=== PATIENT | female | born 1950 | race Caucasian/White ===

== ENCOUNTER 2018-08-05 10:17 | Inpatient (IN) | payer BC, MEDICARE ==
[~2018-08-05] VITALS: Ht 160 cm; Wt 83.5 kg
[~2018-08-05 10:17] MED LIST: ATENOLOL; ATENOLOL25 MG PO; BYETTA; GLIMEPIRIDE; HUMALOG SQ; LEVEMIR100 UNIT/1 SQ; METFORMIN; METFORMIN HCL1000 MG PO; PRAVASTATIN; PRAVASTATIN SOD40 MG PO
[2018-08-05] MEDS ORDERED: SODIUM CHLORIDE 0.9% 1000ML 1,000 ML IV STA (10:44)
[2018-08-05 10:45] LABS: BASOPHILS % 0.6 % (0.0-1.0); EOSINOPHILS # (AUTO) 0.2 (0.0-0.4); EOSINOPHILS % 2.4 % (0.0-6.0); HEMATOCRIT 42.9 % (34.2-44.1); HEMOGLOBIN 13.6 g/dL (12.0-16.0); LYMPHOCYTES # (AUTO) 2.1 (1.0-3.2); LYMPHOCYTES % 30.6 % (18.0-39.1); MEAN CORPUSCULAR HEMOGLOBIN 25.9 pg (28-32); MEAN CORPUSCULAR HGB CONC 31.7 g/dL (31-35); MEAN CORPUSCULAR VOLUME 81.7 fL (81-99); MONOCYTES # (AUTO) 0.5 (0.2-0.8); MONOCYTES % 6.8 % (4.4-11.3); NEUTROPHILS % 59.3 % (38.7-80.0); PLATELET COUNT 283 x10e3/uL (140-360); RED BLOOD COUNT 5.25 x10e6/uL (3.6-5.1); RED CELL DISTRIBUTION WIDTH 13.4 % (11.7-14.4)
[2018-08-05 10:56] LABS: INR 0.93; PROTHROMBIN TIME 13.3 seconds (11.9-14.5)
[2018-08-05 10:57] LABS: CLARITY,URINE CLOUDY (CLEAR); COLOR,URINE YELLOW (YELLOW); LEUKOCYTE ESTERASE ,URINE 1+ (NEGATIVE); NITRITE,URINE NEGATIVE (NEGATIVE); PROTEIN,URINE DIPSTICK TRACE (NEGATIVE)
[2018-08-05 10:58] LABS: BILIRUBIN,URINE NEGATIVE (NEGATIVE); KETONES,URINE TRACE (NEGATIVE); URINE UROBILINOGEN 0.2 mg/dL (0.2 - 1)
[2018-08-05 11:07] LABS: ALBUMIN 3.6 g/dL (3.5-5.0); ALBUMIN/GLOBULIN RATIO 0.9 (0.8-2.0); ANION GAP 18.8 mmol/L (8-16); CALCIUM 9.8 mg/dL (8.4-10.2); CREATININE, SERUM 0.99 mg/dL (0.57-1.11); MAGNESIUM 1.4 MG/DL (1.3-2.1); POTASSIUM 3.8 mmol/L (3.5-5.1); WBC,URINE (MAN) >50 /HPF (0-5)
[2018-08-05 11:08] LABS: BACTERIA,URINE MANY /HPF; RBC,URINE >50 /HPF (0-5)
[2018-08-05 11:09] LABS: EPITHELIAL CELLS,URINE FEW /LPF
[2018-08-05] MEDS ORDERED: INSULIN REGULAR, HUMAN 100 UNIT/1 ML 3ML VIAL SQ ONE (11:15)
[2018-08-05 11:29] LABS: CREATINE KINASE MB 0.5 ng/mL (0-5.0); THYROID STIMULATING HORMONE 1.078 uIU/mL (0.350-4.940)
--- NOTE | 2018-08-05 11:52 | Diagnostic Imaging Report ---
EXAMINATION: CHEST SINGLE (PORTABLE) INDICATION: Numbness. COMPARISON: None FINDINGS: AP view TUBES and LINES: None. LUNGS: Lungs are well inflated. There are bibasilar atelectasis. There is mild prominence of the central pulmonary vasculature, consistent with pulmonary venous congestion. PLEURA: No pleural effusion or pneumothorax. HEART AND MEDIASTINUM: The cardiomediastinal silhouette is unremarkable. BONES AND SOFT TISSUES: No acute osseous lesion. Soft tissues are unremarkable. UPPER ABDOMEN: No free air under the diaphragm. IMPRESSION: Mild nonspecific central pulmonary venous congestion. Signed by: Dr. Dane Brush M.D. on 08/05/2018 11:48 AM
--- NOTE | 2018-08-05 12:01 | Diagnostic Imaging Report ---
History:High blood sugar, numbness Comparison studies:None Technique: Axial images were obtained from the skull base to the vertex. Coronal and sagittal images reconstructed from the axial data. Intravenous contrast: None Dose modulation, iterative reconstruction, and/or weight based adjustment of the mA/kV was utilized to reduce the radiation dose to as low as reasonably achievable. Findings: Scalp/skull: No abnormalities. Extra-axial spaces: No masses. No fluid collections. Brain sulci: Mildly prominent. Ventricles: Mild compensatory dilatation. No hydrocephalus. Parenchyma: Few small hypodensities in the supratentorial white matter are small vessel ischemic changes small chronic lacunar infarct in the left thalamocapsular region. No masses, hemorrhage, acute or chronic cortical vascular insults. Sellar/suprasellar region: No abnormalities. Craniocervical junction: Patent foramen magnum. No Chiari one malformation. Incidental findings: Atherosclerotic calcifications in the carotid siphons and vertebral arteries . Impression: No acute abnormalities. Chronic findings: 1. Mild generalized volume loss. 2. Mild supratentorial white matter small vessel ischemic changes. 3. Chronic left thalamocapsular lacunar infarct. Signed by: DR Herson Haines M.D. on 08/05/2018 11:57 AM
[2018-08-05] MEDS ORDERED: DEXTROSE 50% SYRINGE 50 ML IV PRN (12:15)
[2018-08-05] MEDS: SODIUM CHLORIDE 0.9% 1000ML 1,000 ML IV SCH ×2 (12:57→22:14)
[2018-08-05] MEDS: CEFTRIAXONE SOD 1 GM VIAL IV SCH (12:58)
[2018-08-05] MEDS: INSULIN REGULAR, HUMAN 100 UNIT/1 ML 3ML VIAL SQ SCH ×2 (17:53→22:11)
[2018-08-05 18:47] LABS: CREATINE KINASE 34 IU/L (29-168)
[2018-08-05 23:00] VITALS: BP 139/69
[2018-08-06] VITALS (7 sets, daily range): BP systolic 116–139; BP diastolic 59–79
[2018-08-06 02:54] LABS: CREATINE KINASE 32 IU/L (29-168)
[2018-08-06] MEDS: SODIUM CHLORIDE 0.9% 1000ML 1,000 ML IV SCH ×2 (07:43→18:10)
[2018-08-06] MEDS: INSULIN REGULAR, HUMAN 100 UNIT/1 ML 3ML VIAL SQ SCH ×4 (08:03→20:45)
[2018-08-06] MEDS: CEFTRIAXONE SOD 1 GM VIAL IV SCH (11:45)
--- NOTE | 2018-08-06 11:56 | History and Physical ---
PRIMARY CARE PHYSICIAN: None CHIEF COMPLAINT: Right-sided numbness. HISTORY OF PRESENT ILLNESS: This is a 67-year-old woman with a history of hypertension, hyperlipidemia, now developing right arm and leg numbness upon awakening on Monday morning. Did not have any weakness. Denies any speech or memory problems. Therefore, she came to the hospital for further evaluation and management. Here she was found to have a urinary tract infection. CT of the head is negative. MRI is pending. PAST MEDICAL HISTORY: Hypertension, hyperlipidemia. PAST SURGICAL HISTORY: Tubal ligation, tonsillectomy, gastric banding, status post removal. ALLERGIES: PER ELECTRONIC MEDICAL RECORD. FAMILY HISTORY/SOCIAL HISTORY: Patient is . She has 1 children. No alcohol, illicits or cigarettes. MEDICATIONS: Per electronic medical records. REVIEW OF SYSTEMS: Denies any dizziness, chest pain, shortness of breath, fever, chills, sweats, nausea, vomiting, diarrhea, headache, back pain, dizziness, arm weakness. PHYSICAL EXAMINATION VITAL SIGNS: Have been reviewed. GENERAL: A tired-appearing woman resting in bed. HEENT: Anicteric. CARDIOVASCULAR: Normal S1 and S2. LUNGS: Moderate breath sounds. ABDOMEN: Soft, nontender and nondistended. EXTREMITIES: No edema or calf tenderness. NEUROLOGICAL: Alert and oriented times 3. She moves all extremities with 5/5 motor strength in all extremities. She has no visual field deficits. LABS: Reviewed. MEDICATIONS: Reviewed. ASSESSMENT: A 67-year-old woman with: 1. Urinary tract infection. 2. Transient ischemic attack versus acute stroke. 3. Uncontrolled diabetes mellitus. 4. Hyperlipidemia. 5. Obesity: Body mass index is 32.6. PLAN 1. Will obtain MRI of the brain. 2. Will utilize aspirin and statin and beta dread. Will obtain a lipid panel. 3. Will use ceftriaxone for treatment of urinary tract infection and follow up cultures. 4. Will use Lovenox and Pepcid for prophylaxis. 5. Disposition. Follow up imaging. Job#: [id number] MARK
--- NOTE | 2018-08-06 14:16 | Diagnostic Imaging Report ---
Exams: Brain MRI, cervical MRA and intracranial MRA without IV contrast History: Right-sided paresthesia, hyperglycemia, Comparison studies: Head CT 08/05/2020 Technique: Brain: Sagittal axial T2 FLAIR, axial DWI, axial and coronal T2 flair, axial T2*GRE and axial T1 FLAIR. Cervical MRA: Axial 2-D [id number] with 3-D MIP reformats. Intracranial MRA: Axial 3-D [id number] with coronal, sagittal and 3-D MIP reformats. Intravenous contrast: None Findings: Brain: Scalp: No abnormal signal. No masses. Bone marrow: Normal in signal intensity. Brain sulci: Mildly prominent. Ventricles: Mild compensatory dilatation. No hydrocephalus. Parenchyma: Acute nonhemorrhagic foci of acute ischemia within the left paramedian thalamus and left posterior lateral thalamus (regional to the paramedian, lateral posterior choroidal and inferolateral thalamic vascular territories). A few scattered foci of T2 FLAIR hyperintensity in the supratentorial white matter are nonspecific but most compatible with chronic microvascular ischemic changes Suprasellar region: No abnormalities. Craniocervical junction: No abnormalities. The foramen magnum is patent. No Chiari malformations. Vessels: Normal flow-voids in the arteries and sinuses. Incidental findings: Bilateral intraocular lens replacements for previous cataract surgery. Cervical MRA: If present, stenosis is calculated utilizing the NASCET method which calculates the degree of stenosis with reference to the normal lumen of the carotid artery distal to the stenosis. Exam is somewhat limited by artifacts related to patient motion. Common carotid arteries: Patent, no gross flow abnormalities. Left common carotid artery arises from the right brachycephalic trunk. Carotid bulbs: Patent, no hemodynamically significant stenosis bilaterally (0% stenosis by NASCET criteria). Internal carotid arteries: Patent, no stenosis. Tortuous distal left cervical ICA segment. Vertebral arteries: Cannot adequate evaluate the origins due to motion/pulsation artifacts. Otherwise patent, no flow abnormalities. Intracranial MRA: Internal carotid arteries: Patent, no flow abnormalities. Calcified atherosclerosis in the cavernous and paraophthalmic ICA segments on the previous head CT do not result in stenosis. Middle cerebral arteries: Patent bilateral M1 and proximal M2 segments. Anterior cerebral arteries: Patent bilateral A1 and proximal A2 segments. Vertebral arteries: Patent, no flow abnormalities on the right. Patent on the left with approximately 50-60% stenosis due to atherosclerosis in the proximal intradural V4 segment, proximal to the PICA origin. Basilar artery: Patent, no flow abnormalities. Posterior cerebral arteries: Patent, no flow abnormalities in the proximal segments bilaterally Anatomical variants: Acom: Patent. Pcom: Patent on the right. Not well visualized on the left, possibly hypoplastic. Vertebral arteries:Codominant. IMPRESSION: Brain MRI: 1. Acute left thalamic nonhemorrhagic ischemic insult. 2. Mild chronic microvascular ischemic changes. 3. Mild generalized line loss. Cervical MRA: 1. Cannot adequately evaluate the vertebral artery origins due to artifacts. 2. Otherwise patent, no flow limiting stenosis in the bilateral carotid vertebral arteries. 3. No (0%) stenosis at the carotid bulbs by NASCET criteria. Intracranial MRA: 1. Nonstenotic atherosclerosis in the carotid siphons. 2. Approximately 50-60% stenosis in the proximal left intradural vertebral artery. 3. No other intracranial MRA abnormalities. Signed by: Dr. Ronaldo Martinez M.D. on 08/06/2018 2:13 PM
[2018-08-06] MEDS ORDERED: ASPIRIN 81 MG CHEW TAB PO SCH (15:00)
[2018-08-06] MEDS ORDERED: CLOPIDOGREL BISULFATE 75 MG TAB PO SCH (15:00)
[2018-08-06] MEDS ORDERED: ENOXAPARIN SOD INJ 40 MG/0.4 ML SYR SC SCH (17:00)
[2018-08-06] MEDS ORDERED: ATENOLOL 50 MG TAB PO SCH (21:00)
[2018-08-06] MEDS ORDERED: INSULIN DETEMIR 100 UNIT/ML PEN SQ SCH (21:00)
[2018-08-06] MEDS ORDERED: PRAVASTATIN 20 MG TAB PO SCH (21:00)
[2018-08-07] VITALS: BP 120/67
[2018-08-07 04:00] VITALS: BP 118/62
[2018-08-07] MEDS ORDERED: PLAVIX75 MG PO (06:57)
[2018-08-07] MEDS ORDERED: ASPIRIN CHEW81 MG PO (06:57)
[2018-08-07] MEDS ORDERED: LIPITOR20 MG PO (06:57)
[2018-08-07] MEDS ORDERED: PEPCID20 MG PO (07:00)
[2018-08-07 07:29] LABS: ANION GAP 12.1 mmol/L (8-16); BLOOD UREA NITROGEN 9 mg/dL (7-26); BUN/CREATININE RATIO 13 (6-25); CALCIUM 9.3 mg/dL (8.4-10.2); CARBON DIOXIDE 24 mmol/L (22-29); CHLORIDE 110 mmol/L (98-107); CREATININE, SERUM 0.71 mg/dL (0.57-1.11); EST GLOMERULAR FILTRATION RATE > 60 ML/MIN (60-); GLUCOSE 99 mg/dL (74-118); POTASSIUM 4.1 mmol/L (3.5-5.1); SODIUM 142 mmol/L (136-145)
[2018-08-07] MEDS: INSULIN REGULAR, HUMAN 100 UNIT/1 ML 3ML VIAL SQ SCH (07:30)
[2018-08-07 07:47] VITALS: BP 118/66
[2018-08-07 08:50] VITALS: BP 118/66
--- NOTE | 2018-08-07 19:23 | Cardiology Report ---
DATE OF STUDY: August 06, 2018 ECHOCARDIOGRAM M-MODE: Normal chamber sizes. Left ventricular hypertrophy. Normal contractility. Normal mitral aortic valves. No pericardial effusion. SECTOR SCAN: Normal chamber sizes. Left ventricular hypertrophy. Normal contractility. Normal mitral, aortic and tricuspid valves. No pericardial effusion. CARDIAC DOPPLER STUDY WITH COLOR: Trace tricuspid regurgitation. CONCLUSIONS: 1. Concentric left ventricular hypertrophy with ejection fraction of approximately 60%. 2. Trace tricuspid regurgitation. Job#: [id number] cc:LAURYN CEDEÑO MD
--- NOTE | 2018-08-08 01:23 | Discharge Summary ---
PRINCIPAL DIAGNOSES 1. Acute left thalamic nonhemorrhagic ischemic stroke. 2. Urinary tract infection. 3. 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 4. Obesity: Body mass index 32.6. 5. Hyperlipidemia. 6. Uncontrolled diabetes mellitus with hemoglobin A1c of 16.2, low-density lipoprotein of 162, and triglycerides of 149. SECONDARY DIAGNOSIS: Hypertension. CHIEF COMPLAINT AND HISTORY OF PRESENT ILLNESS: Refer to [facility] HOSPITAL COURSE: Patient was found to have acute ischemic stroke. Also had a stenosis in the vertebral artery. Patient was started on aspirin, statin, and Plavix. Blood pressure control provided, also treated with ceftriaxone for urinary tract infection. Patient received physical therapy, did well. Ultrasound of the carotid was not significant. Therefore, patient was transitioned home with plan to follow up. DISCHARGE MEDICATIONS: Per electronic medical record. FOLLOWUP 1. With primary care doctor in 1 week. 2. Follow up with me in 1 week. CONDITION ON DISCHARGE: Stable and improving. DISCHARGE LOCATION: Home. LAURYN CEDEÑO MD Job#: [id number]
== END 2018-08-07 09:20 | disposition home or self-care (01) | DRG 65 ==
LOC: ER 10:17 → ERHOLD 12:10 → MED/SURG 22:09
PROVIDERS: ADMIT Internal Medicine; ATTEND Internal Medicine
DX: I63.9 Cerebral infarction, unspecified (principal); N39.0 Urinary tract infection, site not specified; I65.02 Occlusion and stenosis of left vertebral artery; I10 Essential (primary) hypertension; E66.9 Obesity, unspecified; E78.5 Hyperlipidemia, unspecified; E11.65 Type 2 diabetes mellitus with hyperglycemia; Z68.32 Body mass index [BMI] 32.0-32.9, adult; Z79.02 Long term (current) use of antithrombotics/antiplatelets; Z79.82 Long term (current) use of aspirin; Z79.4 Long term (current) use of insulin
CPT/HCPCS: 36415; 70450; 70544; 70547; 70551; 71045; 80048; 80053; 80061; 81001; 82550; 82553; 82948; 83036; 83690; 83735; 84443; 84484; 85025; 85610; 85730; 87086; 87186; 93005; 93306; 96372; 99284; J0696; J1650; J7030

== ENCOUNTER 2019-07-15 02:18 | Emergency (ER) | payer BC, MEDICARE ==
[~2019-07-15] VITALS: Ht 160 cm; Wt 83.5 kg
[~2019-07-15 02:18] MED LIST changes: +ASPIRIN CHEW81 MG PO; +LIPITOR20 MG PO; +PEPCID20 MG PO; +PLAVIX75 MG PO
--- OUTSIDE RECORDS SUMMARY | 2019-07-15 02:22 | XMS REPORT | Continuity of Care Document ---
Author Author [employer] Address Unknown Phone Unavailable Care Team Providers Care Senior Account Representative Name Role Phone [email or web address] Information [employer] Unavailable Unavailable Problems Problem Status Onset Date Classification Date Reported Comments Source M25.532 - PAIN IN LEFT WRIST Active 05/25/2016 ROSMERY Colbert POST-OPERATIVE INFECTION Active 04/01/2015 Condition 04/01/2015 [facility] UNK Active 03/31/2015 [facility] ICD 996.5 / CPT 87002 Active 03/31/2015 [facility] 787.6 Active 01/19/2015 [facility] 787.60 Active 11/28/2014 [facility] INCOMPLETE EMPTYING Active 09/10/2014 Condition 04/01/2015 [facility] FECAL INCONTINENCE, FULL Active 09/10/2014 Condition 04/01/2015 [facility] FECAL INCONTINENCE, SMEAR Active 09/10/2014 Condition 04/01/2015 [facility] FECAL INCONTINENCE, URGENCY Active 09/10/2014 Condition 04/01/2015 [facility] COLON POLYPS Active 09/10/2014 Condition 04/01/2015 [facility] GERD Active 01/16/2013 [facility] Diabetes mellitus Active Problem 03/13/2013 [facility] Hyperlipidemia Active Problem 03/13/2013 [facility] Sleep apnea Active Problem 03/13/2013 [facility] Tachycardia Active Problem 03/13/2013 [facility] Bilateral cataracts (disorder) [facility] mellitus ([facility]order) [facility]29[facility] Gastroesophageal reflux disease (disorder) Active [facility] 05/29[facility] Hypertensive disorder, systemic arterial (disorder) Active [facility] 05/29[facility] ([facility]order) [facility] 05/29[facility] Sleep apnea (finding) Active [facility] 05/29[facility] Tachycardia (finding) Active [facility] 05/29[facility] Hypergly[facility] Active Problem 08/07/2018 [facility] Paresthesia of right upper and lower extremity Active Problem 08/07/2018 [facility] Urinary tract infection Active Problem 08/07/2018 [facility] REFLUX ESOPHAGITIS Active [facility] Medications Medication Details Route Status Patient Instructions Ordering Provider Order Date Source Aspirin (Aspirin Chew) 81 Mg Chew Daily Active [facility] 08/07/2018 [facility] Atorvastatin Calcium (Lipitor) 20 Mg Tablet Bedtime Active [facility] 08/07/2018 [facility] Clopidogrel Bisulfate (Plavix) 75 Mg Tablet Daily Active [facility] 08/07/2018 [facility] Famotidine (Pepcid) 20 Mg Tablet Twice A Day Active [facility] 08/07/2018 [facility] Pravastatin Sodium 40 Mg Tablet, 40 Mg Oral Bedtime Active 08/07/2018 [facility] Atenolol , Bedtime Active 10/13/2017 [facility] Byetta , Twice A Day Active 10/13/2017 [facility] Glimepiride , Daily Active 10/13/2017 [facility] Metformin , Twice A Day Active 10/13/2017 [facility] Pravastatin , Daily Active 10/13/2017 [facility] LR IV 500 mL 500 mL, Rate: 25 ml/hr, Infuse over: 20 hr, Route: IV, Dosing Weight 90 kg, Total Volume: 500, Start date: 04/01/15 10:26:00, Duration: 30 day, Stop date: 05/01/15 10:25:00 Inactive 04/01/2015 [facility] 3 ML Insulin Glargine 100 UNT/ML Prefilled Syringe [Lantus] 51 units, SUB-Q, Bedtime, # 3 mL, 3 Refill(s) Active 04/01/2015 [facility] Calcium Chloride 0.0014 MEQ/ML / Potassium Chloride 0.004 MEQ/ML / Sodium Chloride 0.103 MEQ/ML / Sodium Lactate 0.028 MEQ/ML Injectable Solution 1,000 mL, Rate: 25 ml/hr, Infuse over: 40 hr, Route: IV, Dosing Weight 90 kg, Total Volume: 1,000, Start date: 03/18/15 9:28:00, Duration: 30 day, Stop date: 04/17/15 9:27:00 Inactive 03/18/2015 [facility] Acetaminophen 300 MG / Codeine Phosphate 30 MG Oral Tablet [Tylenol with Codeine #3] 1 tab, PO, Q6H, PRN for pain, # 24 tab, 0 Refill(s) Active 03/04/2015 [facility] Calcium Chloride 0.0014 MEQ/ML / Potassium Chloride 0.004 MEQ/ML / Sodium Chloride 0.103 MEQ/ML / Sodium Lactate 0.028 MEQ/ML Injectable Solution 500 mL, Rate: 25 ml/hr, Infuse over: 20 hr, Route: IV, Dosing Weight 89.909 kg, Total Volume: 500, Start date: 03/04/15 6:44:00, Duration: 30 day, Stop date: 04/03/15 6:43:00 Inactive 03/04/2015 [facility] lorcaserin hydrochloride 10 MG Oral Tablet [Belviq] 10 mg=1 tab, PO, BID, 0 Refill(s) Active 02/11/2015 [facility] glimepiride 2 mg oral tablet 2 mg=1 tab, PO, Daily, # 30 tab, 0 Refill(s) Active 02/11/2015 [facility] Ancef 1 gm, 100 mL, Route: IVPB, Drug form: INJ, ONCE, Dosing Weight 88.182, kg, Start date: 02/11/15 8:44:00, Duration: 1 doses or times, Stop date: 02/11/15 8:44:00 Inactive 02/11/2015 [facility] Pravastatin 20 mg=1 tab, PO, Bedtime, # 30 tab, 0 Refill(s) Active 12/30/2014 [facility] hydromorphone 0.5 mg, 0.25 mL, Route: IVP, Drug form: INJ, Q5Min, Dosing Weight 77.273, kg, PRN Pain Score 4-6, Start date: 03/11/13 11:52:00, Duration: 5 doses or times, Stop date: 03/12/13 0:00:00 IVP No Longer Active Cain 03/11/2013 [facility] naloxone 0.04 mg, 0.1 mL, Route: IVP, Drug form: INJ, Q2MIN, Dosing Weight 77.273, kg, PRN Narcotic Reversal, Start date: 03/11/13 11:52:00, Duration: 8 doses or times, Stop date: 03/12/13 0:00:00 IVP No Longer Active Cain 03/11/2013 [facility] flumazenil 0.2 mg, 2 mL, Route: IVP, Drug form: INJ, PRN, Dosing Weight 77.273, kg, PRN Benzodiazepine Reversal, Initial dose, Start date: 03/11/13 11:52:00, Duration: 1 day, Stop date: 03/12/13 11:51:00 IVP No Longer Active Cain 03/11/2013 [facility] ondansetron 4 mg, 2 mL, Route: IVP, Drug form: INJ, ONCE, Dosing Weight 77.273, kg, PRN Nausea & Vomiting, Start date: 03/11/13 11:52:00 IVP No Longer Active Cain 03/11/2013 [facility] Ofirmev 1,000 mg, 100 mL, Route: IV, Drug form: INJ, ONCE, Start date: 03/11/13 9:32:00, Stop date: 03/11/13 9:32:00 IV Active Enriquez 03/11/2013 [facility] scopolamine 1 patch, Route: TOP, Drug form: ERFILM, ONCE, Start date: 03/11/13 9:32:00, Stop date: 03/11/13 9:32:00 TOP Active Enriquez 03/11/2013 [facility] Mefoxin 2 gm, Route: IVPB, Drug form: INJ, ONCE, Start date: 03/11/13 9:32:00, Stop date: 03/11/13 9:32:00 IVPB No Longer Active Shadi 03/11/2013 [facility] Zofran ODT 4 mg oral tablet, disintegrating 4 mg, 1 tab, PO, BID, PRN, Dissolve tab under tongue, 20 tab, Nausea and Vomiting, Substitution AllowedDissolve tab under tongue PO Active Pal 02/27/2013 [facility] Lortab 500 mg-7.5 mg/15 mL oral elixir 15 ml, PO, Q4H, PRN, 500 mL, for pain, Substitution Allowed, Maintenance, ELIX PO Active Pal 02/27/2013 [facility] heparin 5,000 unit, Route: SUB-Q, Q12H, Dosing Weight 77.273, kg, Start date: 02/26/13 21:00:00, Duration: 30 day, Stop date: 03/28/13 9:00:00 SUB-Q No Longer Active Pal 02/27/2013 [facility] heparin 5,000 unit, 1 mL, Route: SUB-Q, Drug form: INJ, Q8H, Dosing Weight 77.273, kg, Start date: 02/26/13 16:00:00, Duration: 30 day, Stop date: 03/28/13 8:00:00 SUB-Q No Longer Active Pal 02/26/2013 [facility] [place] 325 mg-10 mg / 15 mL oral solution 15 mL, Route: PO, Drug Form: SOLN, Dosing Weight 77.273, kg, Q4H, PRN For Pain, Start date: 02/26/13 14:00:00, Duration: 30 day, Stop date: 03/28/13 13:59:00 PO No Longer Active Enriquez 02/26/2013 [facility] Dextrose 50% Syringe 25 gm, 50 mL, Route: IVP, Drug Form: INJ, Dosing Weight 77.273, kg, PRN, PRN Blood Glucose Results, Start date: 02/26/13 11:50:00, Duration: 30 day, Stop date: 03/28/13 11:49:00 IVP No Longer Active Pal 02/26/2013 [facility] glucagon 1 mg, Route: IM, Drug form: PDR/INJ, PRN, Dosing Weight 77.273, kg, PRN Blood Glucose Results, Start date: 02/26/13 11:50:00, Duration: 30 day, Stop date: 03/28/13 11:49:00 IM No Longer Active Pal 02/26/2013 [facility] insulin aspart 2 unit, 0.02 mL, Route: SUB-Q, Drug form: SOLN, TID-Before Meals, Dosing Weight 77.273, kg, PRN Blood Glucose Results, Start date: 02/26/13 11:50:00, Duration: 30 day, Stop date: 03/28/13 11:49:00 SUB-Q No Longer Active Pal 02/26/2013 [facility] Insulin regular 5 unit, Route: SUB-Q, TID-Before Meals, Dosing Weight 77.273, kg, PRN Blood Glucose Results, Start date: 02/26/13 9:12:00, Duration: 30 day, Stop date: 03/28/13 9:11:00 SUB- Q No Longer Active Hemmad 02/26/2013 [facility] labetalol 5 mg, 1 mL, Route: IVP, Drug form: INJ, Q5Min, Dosing Weight 77.273, kg, PRN Elevated BP, Start date: 02/26/13 9:12:00, Duration: 5 doses or times, Stop date: 02/27/13 0:00:00 IVP No Longer Active Hemmad 02/26/2013 [facility] naloxone 0.04 mg, 0.1 mL, Route: IVP, Drug form: INJ, Q2MIN, Dosing Weight 77.273, kg, PRN Narcotic Reversal, Start date: 02/26/13 9:12:00, Duration: 8 doses or times, Stop date: 02/27/13 0:00:00 IVP No Longer Active Hemmad 02/26/2013 [facility] ondansetron 4 mg, Route: IVP, ONCE, Dosing Weight 77.273, kg, PRN Nausea & Vomiting, Start date: 02/26/13 9:12:00 IVP No Longer Active Hemmad 02/26/2013 [facility] flumazenil 0.2 mg, 2 mL, Route: IVP, Drug form: INJ, PRN, Dosing Weight 77.273, kg, PRN Benzodiazepine Reversal, Initial dose, Start date: 02/26/13 9:12:00, Duration: 30 day, Stop date: 03/28/13 9:11:00 IVP No Longer Active Hemmad 02/26/2013 [facility] promethazine 6.25 mg, 0.25 mL, Route: IVPB, Drug form: INJ, ONCE, Dosing Weight 77.273, kg, PRN Nausea & Vomiting, Start date: 02/26/13 9:12:00 IVPB No Longer Active Hemmad 02/26/2013 [facility] pantoprazole 40 mg, Route: IVP, Drug form: INJ, Q24H, Dosing Weight 77.273, kg, Start date: 02/26/13 9:00:00, Duration: 30 day, Stop date: 03/27/13 9:00:00 IVP No Longer Active [facility] 02/26/2013 [facility] Ofirmev 1,000 mg, 100 mL, Route: IV, Drug form: INJ, Q6H, Dosing Weight 77.273, kg, PRN Pain, for > or=50 kg, Start date: 02/26/13 8:46:00, Duration: 1 day, Stop date: 02/27/13 8:45:00 IV No Longer Active Pal 02/26/2013 [facility] Lactated Ringers Injection IV 1,000 mL 1,000 mL, Rate: 75 ml/hr, Infuse over: 13.3 hr, Route: IV, kg, Total Volume: 1,000, Start date: 02/26/13 8:46:00, Duration: 30 day, Stop date: 03/28/13 8:45:00 IV No Longer Active [facility] 02/26/2013 [facility] ondansetron 4 mg, 2 mL, Route: IVP, Drug form: INJ, Q6H, Dosing Weight 77.273, kg, PRN Nausea & Vomiting, Start date: 02/26/13 8:46:00, Duration: 30 day, Stop date: 03/28/13 8:45:00 IVP No Longer Active [facility] 02/26/2013 [facility] NS 1,000 mL 1,000 mL, Rate: 100 ml/hr, Infuse over: 10 hr, Route: IV, kg, Total Volume: 1,000, Start date: 02/26/13 8:06:00, Duration: 30 day, Stop date: 03/28/13 8:05:00 IV No Longer Active Melnikov 02/26/2013 [facility] Insulin regular 5 unit, Route: IV, ONCE, Dosing Weight 77.273, kg, Start date: 02/26/13 8:06:00, Stop date: 02/26/13 8:06:00 IV No Longer Active Melnikov 02/26/2013 [facility] Insulin regular 5 unit, 0.05 mL, Route: IV, Drug form: SOLN, ONCE, Dosing Weight 77.273, kg, Start date: 02/26/13 7:26:00, Stop date: 02/26/13 7:26:00 IV No Longer Active Enriquez 02/26/2013 [facility] Insulin regular 10 unit, 0.1 mL, Route: SUB-Q, Drug form: SOLN, ONCE, Dosing Weight 77.273, kg, Start date: 02/26/13 7:22:00, Stop date: 02/26/13 7:22:00 SUB-Q No Longer Active Enriquez 02/26/2013 [facility] metFORmin 500 mg oral tablet 500 mg, 1 tab, PO, BID, 60 tab, Substitution Allowed PO Active 02/26/2013 [facility] atenolol 25 mg oral tablet 25 mg, 1 tab, PO, Daily, 30 tab, Substitution Allowed PO Active 02/26/2013 [facility] Byetta 10 mcg/0.04 mL subcutaneous solution 10 microgram, SUB-Q, BID, 2 ml, Substitution Allowed, SOLN SUB-Q Active 02/26/2013 [facility] Ofirmev 1,000 mg, 100 mL, Route: IV, Drug form: INJ, PRE OP, Start date: 02/26/13 5:00:00, Duration: 1 day, Stop date: 02/27/13 4:59:00 IV No Longer Active Pal 02/26/2013 [facility] scopolamine 1 patch, Route: TOP, Drug form: ERFILM, PRE OP, Start date: 02/26/13 5:00:00, Duration: 1 day, Stop date: 02/27/13 4:59:00 TOP No Longer Active Enriquez 02/26/2013 [facility] Mefoxin 2 gm, Route: IVPB, Drug form: INJ, PRE OP, Start date: 02/26/13 5:00:00, Duration: 1 day, Stop date: 02/27/13 4:59:00 IVPB No Longer Active Enriquez 02/26/2013 [facility] Atenolol 25 Mg Tablet Bedtime Active [facility] Humalog Three Times A Day Active [facility] Insulin Detemir (Levemir) 100 Unit/1 Ml V[address] Bedtime Active [facility] Metformin Hcl 1,000 Mg Tablet Twice A Day Active [facility] Allergies, Adverse Reactions, Alerts No Known Medication Allergies Immunizations No Data Provided for This Section Results Order Name Results Value Reference Range Date Interpretation Comments Source Estimated glomerular filtration rate (GFR) determination Estimated glomerular filtration rate (GFR) determination >60 60 08/07/2018 [facility] Glucose measurement Glucose measurement 99 74 - 118 08/07/2018 [facility] Serum or plasma anion gap Serum or plasma anion gap 12.1 8 - 16 08/07/2018 [facility] Serum or plasma calcium measurement (mass/volume) Serum or plasma calcium measurement (mass/volume) 9.3 8.4 - 10.2 08/07/2018 [facility] Serum or plasma carbon dioxide, total measurement (moles/volume) Serum or plasma carbon dioxide, total measurement (moles/volume) 24 22 - 29 08/07/2018 [facility] Serum or plasma chloride measurement (moles/volume) Serum or plasma chloride measurement (moles/volume) 110 98 - 107 08/07/2018 [facility] Serum or plasma creatinine measurement (mass/volume) Serum or plasma creatinine measurement (mass/volume) 0.71 0.57 - 1.11 08/07/2018 [facility] Serum or plasma potassium measurement (moles/volume) Serum or plasma potassium measurement (moles/volume) 4.1 3.5 - 5.1 08/07/2018 [facility] Serum or plasma sodium measurement (moles/volume) Serum or plasma sodium measurement (moles/volume) 142 136 - 145 08/07/2018 [facility] Serum or plasma urea nitrogen measurement (mass/volume) Serum or plasma urea nitrogen measurement (mass/volume) 9 7 - 26 08/07/2018 [facility] Serum or plasma urea nitrogen/creatinine mass ratio Serum or plasma urea nitrogen/creatinine mass ratio 13 6 - 25 08/07/2018 [facility] Capillary blood glucose measurement by glucometer (mass/volume) Capillary blood glucose measurement by glucometer (mass/volume) 108 70 - 120 08/07/2018 [facility] Hemoglobin A1c Percent 16.2 4.0 - 7.0 08/06/2018 [facility] Serum or plasma creatine kinase MB measurement (mass/volume) Serum or plasma creatine kinase MB measurement (mass/volume) 0.40 0 - 5.0 08/06/2018 [facility] Serum or plasma creatine kinase measurement (enzymatic activity/volume) Serum or plasma creatine kinase measurement (enzymatic activity/volume) 32 29 - 168 08/06/2018 [facility] Troponin I measurement by highly sensitive enzyme immunoassay Troponin I measurement by highly sensitive enzyme immunoassay <0.001 0 - 0.300 08/06/2018 [facility] Activated partial thromboplastin time (aPTT) in platelet poor plasma bycoagulation assay Activated partial thromboplastin time (aPTT) in platelet poor plasma bycoagulation assay 26.0 23.8 - 35.5 08/05/2018 [facility] Automated blood basophil count (count/volume) Automated blood basophil count (count/volume) 0.0 0.0 - 0.1 08/05/2018 [facility] Automated blood basophil count as percentage of total leukocytes Automated blood basophil count as percentage of total leukocytes 0.6 0.0 - 1.0 08/05/2018 [facility] Automated blood eosinophil count Automated blood eosinophil count 0.2 0.0 - 0.4 08/05/2018 [facility] Automated blood eosinophil count as percentage of total leukocytes Automated blood eosinophil count as percentage of total leukocytes 2.4 0.0 - 6.0 08/05/2018 [facility] Automated blood hematocrit (volume fraction) Automated blood hematocrit (volume fraction) 42.9 34.2 - 44.1 08/05/2018 [facility] Automated blood lymphocyte count as percentage ot total leukocytes Automated blood lymphocyte count as percentage ot total leukocytes 30.6 18.0 - 39.1 08/05/2018 [facility] Automated blood monocyte count as percentage of total leukocytes Automated blood monocyte count as percentage of total leukocytes 6.8 4.4 - 11.3 08/05/2018 [facility] Automated blood neutrophil count Automated blood neutrophil count 4.0 2.1 - 6.9 08/05/2018 [facility] Automated blood platelet count (count/volume) Automated blood platelet count (count/volume) 283 140 - 360 08/05/2018 [facility] Automated blood segmented neutrophil count as percentage of total leukocytes Automated blood segmented neutrophil count as percentage of total leukocytes 59.3 38.7 - 80.0 08/05/2018 [facility] Automated erythrocyte mean corpuscular hemoglobin (mass per erythrocyte) Automated erythrocyte mean corpuscular hemoglobin (mass per erythrocyte) 25.9 28 - 32 08/05/2018 [facility] Automated erythrocyte mean corpuscular hemoglobin concentration measurement (mass/volume) Automated erythrocyte mean corpuscular hemoglobin concentration measurement (mass/volume) 31.7 31 - 35 08/05/2018 [facility] Automated erythrocyte mean corpuscular volume Automated erythrocyte mean corpuscular volume 81.7 81 - 99 08/05/2018 [facility] Automated urine sediment leukocyte count by microscopy (number/high power field) Automated urine sediment leukocyte count by microscopy (number/high power field) >50 0 - 5 08/05/2018 [facility] Bacteria detection in urine sediment by light microscopy Bacteria detection in urine sediment by light microscopy MANY NONE 08/05/2018 [facility] Blood erythrocytes automated count (number/volume) Blood erythrocytes automated count (number/volume) 5.25 3.6 - 5.1 08/05/2018 [facility] Blood hemoglobin measurement (moles/volume) Blood hemoglobin measurement (moles/volume) 13.6 12.0 - 16.0 08/05/2018 [facility] Blood leukocytes automated count (number/volume) Blood leukocytes automated count (number/volume) 6.77 4.8 - 10.8 08/05/2018 [facility] Blood lymphocytes count (number/volume) Blood lymphocytes count (number/volume) 2.1 1.0 - 3.2 08/05/2018 [facility] Blood monocytes automated count (number/volume) Blood monocytes automated count (number/volume) 0.5 0.2 - 0.8 08/05/2018 [facility] Epithelial cells detection in urine sediment by light microscopy Epithelial cells detection in urine sediment by light microscopy FEW NONE 08/05/2018 [facility] Erythrocytes detection in urine sediment by light microscopy Erythrocytes detection in urine sediment by light microscopy >50 0 - 5 08/05/2018 [facility] INR in Platelet poor plasma by Coagulation assay INR in Platelet poor plasma by Coagulation assay 0.93 08/05/2018 [facility] Plasma globulin measurement (mass/volume) Plasma globulin measurement (mass/volume) 3.8 2.3 - 3.5 08/05/2018 [facility] Prothrombin time (PT) in platelet poor plasma by coagulation assay Prothrombin time (PT) in platelet poor plasma by coagulation assay 13.3 11.9 - 14.5 08/05/2018 [facility] Serum or plasma alanine aminotransferase measurement (enzymatic activity/volume) Serum or plasma alanine aminotransferase measurement (enzymatic activity/volume) 21 0 - 55 08/05/2018 [facility] Serum or plasma albumin measurement (mass/volume) Serum or plasma albumin measurement (mass/volume) 3.6 3.5 - 5.0 08/05/2018 [facility] Serum or plasma albumin/globulin mass ratio Serum or plasma albumin/globulin mass ratio 0.9 0.8 - 2.0 08/05/2018 [facility] Serum or plasma alkaline phosphatase measurement (enzymatic activity/volume) Serum or plasma alkaline phosphatase measurement (enzymatic activity/volume) 102 40 - 150 08/05/2018 [facility] Serum or plasma cholesterol in HDL measurement (mass/volume) Serum or plasma cholesterol in HDL measurement (mass/volume) 63 40 - 60 08/05/2018 [facility] Serum or plasma cholesterol in LDL measurement (mass/volume) Serum or plasma cholesterol in LDL measurement (mass/volume) 162 60 - 130 08/05/2018 [facility] Serum or plasma cholesterol measurement (mass/volume) Serum or plasma cholesterol measurement (mass/volume) 255 0 - 199 08/05/2018 [facility] Serum or plasma lipase measurement (enzymatic activity/volume) Serum or plasma lipase measurement (enzymatic activity/volume) 46 8 - 78 08/05/2018 [facility] Serum or plasma magnesium measurement (mass/volume) Serum or plasma magnesium measurement (mass/volume) 1.4 1.3 - 2.1 08/05/2018 [facility] Serum or plasma protein measurement (mass/volume) Serum or plasma protein measurement (mass/volume) 7.4 6.5 - 8.1 08/05/2018 [facility] Serum or plasma thyrotropin measurement by detection limit <=0.005 miu/l (units/volume) Serum or plasma thyrotropin measurement by detection limit <=0.005 miu/l (units/volume) 1.078 0.350 - 4.940 08/05/2018 [facility] Serum or plasma total bilirubin measurement (mass/volume) Serum or plasma total bilirubin measurement (mass/volume) 0.5 0.2 - 1.2 08/05/2018 [facility] Serum or plasma total cholesterol/cholesterol in HDL mass ratio Serum or plasma total cholesterol/cholesterol in HDL mass ratio 4.0 3.0 - 3.6 08/05/2018 [facility] Serum or plasma triglyceride measurement (mass/volume) Serum or plasma triglyceride measurement (mass/volume) 149 0 - 149 08/05/2018 [facility] Specific gravity of Urine by Test strip Specific gravity of Urine by Test strip 1.010 1.010 - 1.025 08/05/2018 [facility] Urine clarity Urine clarity CLOUDY CLEAR 08/05/2018 [facility] Urine color determination Urine color determination YELLOW YELLOW 08/05/2018 [facility] Urine erythrocytes detection Urine erythrocytes detection 2+ NEGATIVE 08/05/2018 [facility] Urine glucose detection Urine glucose detection 3+ NEGATIVE 08/05/2018 [facility] Urine ketones detection by automated test strip Urine ketones detection by automated test strip TRACE NEGATIVE 08/05/2018 [facility] Urine leukocyte esterase detection by dipstick Urine leukocyte esterase detection by dipstick 1+ NEGATIVE 08/05/2018 [facility] Urine nitrite detection Urine nitrite detection NEGATIVE NEGATIVE 08/05/2018 [facility] Urine pH measurement by automated test strip Urine pH measurement by automated test strip 6 5 - 7 08/05/2018 [facility] Urine protein measurement by test strip (mass/volume) Urine protein measurement by test strip (mass/volume) TRACE NEGATIVE 08/05/2018 [facility] Urine total bilirubin measurement (mass/volume) Urine total bilirubin measurement (mass/volume) NEGATIVE NEGATIVE 08/05/2018 [facility] Urine urobilinogen measurement by test strip (mass/volume) Urine urobilinogen measurement by test strip (mass/volume) 0.2 0.2 - 1 08/05/2018 [facility] Red Cell Distribution Width 13.4 11.7 - 14.4 08/05/2018 [facility] IM GRANULOCYTES % 0.3 0.0 - 1.0 08/05/2018 [facility] Absolute Immature Granulocyte (auto 0.02 0 - 0.1 08/05/2018 [facility] Aspartate Amino Transf (AST/SGOT) 18 5 - 34 08/05/2018 [facility] Erythrocyte sedimentation rate by Westergren method Erythrocyte sedimentation rate by Westergren method 42 0 - 20 10/14/2017 [facility] Serum atypical perinuclear neutrophil cytoplasmic antibody titer by immunofluorescence Serum atypical perinuclear neutrophil cytoplasmic antibody titer by immunofluorescence <1:20 Neg:<1:20 10/14/2017 [facility] Serum hamlin's yeast IgA antibody assay (units/volume) Serum hamlin's yeast IgA antibody assay (units/volume) 28.5 0.0 - 24.9 10/14/2017 [facility] Serum hamlin's yeast IgG antibody assay (units/volume) Serum hamlin's yeast IgG antibody assay (units/volume) 42.6 0.0 - 24.9 10/14/2017 [facility] Serum or plasma C reactive protein measurement (mass/volume) Serum or plasma C reactive protein measurement (mass/volume) 5.1 0.0 - 4.9 10/14/2017 [facility] Clostridium difficile A and B toxin assay Clostridium difficile A and B toxin assay NEGATIVE NEGATIVE 10/14/2017 [facility] Stool calprotectin measurement (mass/mass) Stool calprotectin measurement (mass/mass) <16 0 - 120 10/14/2017 [facility] Stool lactoferrin detection Stool lactoferrin detection NEGATIVE NEGATIVE 10/14/2017 [facility] ELECTROLYTES AGAP 15.9 10.0 - 20.0 03/11/2015 [facility] ELECTROLYTES eGFR 79 03/11/2015 <sup>1</sup>Result Comment: The eGFR is calculated using the CKD-EPI formula. In most young, healthy individuals the eGFR will be >90 mL/min/1.73m2. The eGFR declines with age. An eGFR of 60-89 may be normal in some populations, particularly the elderly, for whom the CKD-EPI formula has not been extensively validated. Use of the eGFR is not recommended in the following populations:& lt;br/>
Individuals with unstable creatinine concentrations, including patients and those with serious co-morbid conditions.

Patients with extremes in muscle mass or diet.

The data above are obtained from the National Kidney Disease Education Program (NKDEP) which additionally recommends that when the eGFR is used in patients with extremes of body mass index for purposes of drug dosing, the eGFR should be multiplied by the estimated BMI. [facility] ELECTROLYTES Calcium Lvl 9.2 8.5 - 10.5 03/11/2015 [facility] ELECTROLYTES Sodium Lvl 136 135 - 145 03/11/2015 [facility] ELECTROLYTES Creatinine Lvl 0.8 0.5 - 1.4 03/11/2015 [facility] ELECTROLYTES CO2 21 24 - 32 03/11/2015 [facility] ELECTROLYTES Chloride Lvl 103 95 - 109 03/11/2015 [facility] ELECTROLYTES Potassium Lvl 3.9 3.5 - 5.1 03/11/2015 [facility] ELECTROLYTES BUN 9 7 - 22 03/11/2015 [facility] ELECTROLYTES Glucose Lvl 232 70 - 99 03/11/2015 <sup>2</sup>Interpretive Data: Adult reference range values reflect the clinical guidelines
of the [place] [employer]. [facility] HEMATOLOGY Hgb 13.0 12.0 - 16.0 03/11/2015 [facility] HEMATOLOGY Hct 40.2 36.0 - 48.0 03/11/2015 [facility] URINE AND STOOL UA Urobilinogen <=1.0 mg/dL 0.1 - 1.0 03/11/2015 [facility] URINE AND STOOL UA Color Ltyellow 03/11/2015 [facility] URINE AND STOOL UA Leuk Est Negative (03/11/15 11:05 AM) Negative 03/11/2015 [facility] URINE AND STOOL UA Bacteria Occasional /HPF None Seen /HPF 03/11/2015 [facility] URINE AND STOOL UA Ketones Negative mg/dL Negative mg/dL 03/11/2015 [facility] URINE AND STOOL UA Turbidity Clear (03/11/15 11:05 AM) Clear 03/11/2015 [facility] URINE AND STOOL UA Spec Grav 1.014 <=1.030 03/11/2015 [facility] URINE AND STOOL UA pH 5.0 5.0 - 8.0 03/11/2015 [facility] URINE AND STOOL UA Protein Negative mg/dL Negative mg/dL 03/11/2015 [facility] URINE AND STOOL UA Glucose 500 mg/dL Negative mg/dL 03/11/2015 [facility] URINE AND STOOL UA Bili Negative *NA* (03/11/15 11:05 AM) Negative 03/11/2015 [facility] URINE AND STOOL UA Blood Negative (03/11/15 11:05 AM) Negative 03/11/2015 [facility] URINE AND STOOL UA RBC <1 0 - 2 03/11/2015 [facility] URINE AND STOOL UA Nitrite Negative (03/11/15 11:05 AM) Negative 03/11/2015 [facility] URINE AND STOOL UA Sq Epi Occasional /LPF Few /LPF 03/11/2015 [facility] URINE AND STOOL UA WBC 1 0 - 5 03/11/2015 [facility] ELECTROLYTES AGAP 8.8 10.0 - 20.0 02/11/2015 [facility] ELECTROLYTES eGFR 92 02/11/2015 <sup>1</sup>Result Comment: The eGFR is calculated using the CKD-EPI formula. In most young, healthy individuals the eGFR will be >90 mL/min/1.73m2. The eGFR declines with age. An eGFR of 60-89 may be normal in some populations, particularly the elderly, for whom the CKD-EPI formula has not been extensively validated. Use of the eGFR is not recommended in the following populations:& lt;br/>
Individuals with unstable creatinine concentrations, including patients and those with serious co-morbid conditions.

Patients with extremes in muscle mass or diet.

The data above are obtained from the National Kidney Disease Education Program (NKDEP) which additionally recommends that when the eGFR is used in patients with extremes of body mass index for purposes of drug dosing, the eGFR should be multiplied by the estimated BMI. [facility] ELECTROLYTES Calcium Lvl 8.8 8.5 - 10.5 02/11/2015 [facility] ELECTROLYTES Creatinine Lvl 0.7 0.5 - 1.4 02/11/2015 [facility] ELECTROLYTES BUN 10 7 - 22 02/11/2015 [facility] ELECTROLYTES CO2 26 24 - 32 02/11/2015 [facility] ELECTROLYTES Chloride Lvl 106 95 - 109 02/11/2015 [facility] ELECTROLYTES Potassium Lvl 3.8 3.5 - 5.1 02/11/2015 [facility] ELECTROLYTES Sodium Lvl 137 135 - 145 02/11/2015 [facility] ELECTROLYTES Glucose Lvl 196 70 - 99 02/11/2015 <sup>2</sup>Interpretive Data: Adult reference range values reflect the clinical guidelines
of the [place] [employer]. [facility] HEMATOLOGY Hct 39.2 36.0 - 48.0 02/11/2015 [facility] HEMATOLOGY Hgb 12.6 12.0 - 16.0 02/11/2015 [facility] URINE AND STOOL UA Glucose 500 mg/dL Negative mg/dL 02/11/2015 [facility] URINE AND STOOL UA Protein Negative mg/dL Negative mg/dL 02/11/2015 [facility] URINE AND STOOL UA pH 5.0 5.0 - 8.0 02/11/2015 [facility] URINE AND STOOL UA Leuk Est Negative (02/11/15 10:14 AM) Negative 02/11/2015 [facility] URINE AND STOOL UA Sq Epi Occasional /LPF Few /LPF 02/11/2015 [facility] URINE AND STOOL UA WBC <1 0 - 5 02/11/2015 [facility] URINE AND STOOL UA Urobilinogen <=1.0 mg/dL 0.1 - 1.0 02/11/2015 [facility] URINE AND STOOL UA Color Ltyellow 02/11/2015 [facility] URINE AND STOOL UA Bili Negative *NA* (02/11/15 10:14 AM) Negative 02/11/2015 [facility] URINE AND STOOL UA Ketones Negative mg/dL Negative mg/dL 02/11/2015 [facility] URINE AND STOOL UA Nitrite Negative (02/11/15 10:14 AM) Negative 02/11/2015 [facility] URINE AND STOOL UA Blood Negative (02/11/15 10:14 AM) Negative 02/11/2015 [facility] URINE AND STOOL UA Spec Grav 1.012 <=1.030 02/11/2015 [facility] URINE AND STOOL UA Turbidity Clear (02/11/15 10:14 AM) Clear 02/11/2015 [facility] BEDSIDE GLUCOSE TESTING Gluc POC Lifscn 289 70 - 99 03/11/2013 [place] <sup>1</sup>Interpretive Data: Upper Reportable Limit: 200 mg/dL. [facility] CHEMISTRY POC V PCO2 41 38 - 52 03/11/2013 Normal [facility] CHEMISTRY POC V PO2 149 20 - 49 03/11/2013 [facility] CHEMISTRY POC V Na 135 135 - 145 03/11/2013 Normal [facility] CHEMISTRY POC V HCO3 28 22 - 26 03/11/2013 [facility] CHEMISTRY POC V Hct 41.0 36.0 - 48.0 03/11/2013 Normal [facility] CHEMISTRY POC V Source CORY 03/11/2013 NA [facility] CHEMISTRY POC V Temp 37.0 03/11/2013 [facility] CHEMISTRY POC V Glu 285 70 - 99 03/11/2013 [facility] CHEMISTRY POC V O2 Sat 99.0 40.0 - 70.0 03/11/2013 [facility] CHEMISTRY POC V BE 3 -2-2 - 2 03/11/2013 [facility] CHEMISTRY POC V pH 7.44 7.28 - 7.42 03/11/2013 [facility] CHEMISTRY POC V Ion Ca 1.14 1.16 - 1.30 03/11/2013 LOW [facility] CHEMISTRY POC V K 4.1 3.5 - 5.1 03/11/2013 Normal [facility] CHEMISTRY POC V LA 1.1 0.5 - 2.2 03/11/2013 Normal [facility] BEDSIDE GLUCOSE TESTING Gluc POC Lifscn 320 70 - 99 03/11/2013 [place] <sup>2</sup>Interpretive Data: Upper Reportable Limit: 200 mg/dL. [facility] BEDSIDE GLUCOSE TESTING Comment1 Verify w/Lab 03/11/2013 NA [facility] BEDSIDE GLUCOSE TESTING Gluc POC Lifscn >400 70 - 99 03/11/2013 [facility] <sup>3</sup>Interpretive Data: Upper Reportable Limit: 200 mg/dL. [facility] CHEMISTRY eGFR 105 03/11/2013 NA <sup>5</sup>Result Comment: The eGFR is calculated using the CKD-EPI formula. In most young, healthy individuals the eGFR will be >90 mL/min/1.73m2. The eGFR declines with age. An eGFR of 60-89 may be normal in some populations, particularly the elderly, for whom the CKD-EPI formula has not been extensively validated. Use of the eGFR is not recommended in the following populations:& lt;br/>
Individuals with unstable creatinine concentrations, including patients and those with serious co-morbid conditions.

Patients with extremes in muscle mass or diet.

The data above are obtained from the National Kidney Disease Education Program (NKDEP) which additionally recommends that when the eGFR is used in patients with extremes of body mass index for purposes of drug dosing, the eGFR should be multiplied by the estimated BMI. [facility] CHEMISTRY AST 29 0 - 37 03/11/2013 Normal [facility] CHEMISTRY Total Protein 7.2 6.4 - 8.4 03/11/2013 Normal [facility] CHEMISTRY Bili Total 0.4 0.2 - 1.3 03/11/2013 Normal [facility] CHEMISTRY CO2 26 24 - 32 03/11/2013 Normal [facility] CHEMISTRY Chloride Lvl 101 95 - 109 03/11/2013 Normal [facility] CHEMISTRY Sodium Lvl 139 135 - 145 03/11/2013 Normal [facility] CHEMISTRY Calcium Lvl 9.0 8.5 - 10.5 03/11/2013 Normal [facility] CHEMISTRY Creatinine Lvl 0.5 0.5 - 1.4 03/11/2013 Normal [facility] CHEMISTRY Glucose Lvl 302 70 - 99 03/11/2013 [place] <sup>6</sup>Interpretive Data: Adult reference range values reflect the clinical guidelines
of the [place] [employer]. [facility] CHEMISTRY BUN 2 7 - 22 03/11/2013 [facility] CHEMISTRY Potassium Lvl 4.5 3.5 - 5.1 03/11/2013 Normal <sup>4</sup>Result Comment: Specimen Slightly Hemolyzed. [facility] CHEMISTRY Albumin Lvl 3.2 3.5 - 5.0 03/11/2013 LOW [facility] CHEMISTRY Alk Phos 85 39 - 136 03/11/2013 Normal [facility] CHEMISTRY ALT 22 0 - 65 03/11/2013 Normal [facility] CHEMISTRY A/G Ratio 0.8 0.7 - 1.6 03/11/2013 Normal [facility] CHEMISTRY AGAP 16.5 10.0 - 20.0 03/11/2013 Normal [facility] CHEMISTRY Globulin 4.0 2.0 - 4.0 03/11/2013 Normal [facility] CHEMISTRY B/C Ratio 4 6 - 25 03/11/2013 LOW [facility] HEMATOLOGY MCHC 32.3 32.0 - 36.0 03/11/2013 Normal [facility] HEMATOLOGY Platelet 235 133 - 450 03/11/2013 Normal [facility] HEMATOLOGY RDW 13.7 11.5 - 14.5 03/11/2013 Normal [facility] HEMATOLOGY MPV 8.7 7.4 - 10.4 03/11/2013 Normal [facility] HEMATOLOGY MCH 26.2 27.0 - 31.0 03/11/2013 [facility] HEMATOLOGY Hgb 13.3 12.0 - 16.0 03/11/2013 Normal [facility] HEMATOLOGY Hct 41.2 36.0 - 48.0 03/11/2013 Normal [facility] HEMATOLOGY MCV 80.9 81.0 - 99.0 03/11/2013 [facility] HEMATOLOGY RBC 5.09 4.20 - 5.40 03/11/2013 Normal [facility] HEMATOLOGY WBC 7.8 3.7 - 10.4 03/11/2013 Normal [facility] HEMATOLOGY Eosinophils # 0.3 0.0 - 0.5 03/11/2013 Normal [facility] HEMATOLOGY Monocytes # 0.6 0.0 - 0.8 03/11/2013 Normal [facility] HEMATOLOGY Lymphocytes # 1.4 1.0 - 5.5 03/11/2013 Normal [facility] HEMATOLOGY Eosinophils 3.3 0.0 - 4.0 03/11/2013 Normal [facility] HEMATOLOGY Basophils 0.5 0.0 - 1.0 03/11/2013 Normal [facility] HEMATOLOGY Monocytes 7.9 2.0 - 12.0 03/11/2013 Normal [facility] HEMATOLOGY Segs-Bands # 5.5 1.5 - 8.1 03/11/2013 Normal [facility] HEMATOLOGY Lymphocytes 18.2 20.0 - 40.0 03/11/2013 LOW [facility] HEMATOLOGY Segs 70.1 45.0 - 75.0 03/11/2013 Normal [facility] BEDSIDE GLUCOSE TESTING Comment1 Notify TWILA/ 02/27/2013 NA [facility] BEDSIDE GLUCOSE TESTING Gluc POC Lifscn 247 70 - 99 02/27/2013 [place] <sup>1</sup>Interpretive Data: Upper Reportable Limit: 200 mg/dL. [facility] BEDSIDE GLUCOSE TESTING Gluc POC Lifscn 255 70 - 99 02/27/2013 [place] <sup>2</sup>Interpretive Data: Upper Reportable Limit: 200 mg/dL. [facility] BEDSIDE GLUCOSE TESTING Comment1 Notify TWILA/ 02/27/2013 [facility] CHEMISTRY eGFR 105 02/27/2013 NA <sup>4</sup>Result Comment: The eGFR is calculated using the CKD-EPI formula. In most young, healthy individuals the eGFR will be >90 mL/min/1.73m2. The eGFR declines with age. An eGFR of 60-89 may be normal in some populations, particularly the elderly, for whom the CKD-EPI formula has not been extensively validated. Use of the eGFR is not recommended in the following populations:& lt;br/>
Individuals with unstable creatinine concentrations, including patients and those with serious co-morbid conditions.

Patients with extremes in muscle mass or diet.

The data above are obtained from the National Kidney Disease Education Program (NKDEP) which additionally recommends that when the eGFR is used in patients with extremes of body mass index for purposes of drug dosing, the eGFR should be multiplied by the estimated BMI. [facility] CHEMISTRY Chloride Lvl 106 95 - 109 02/27/2013 Normal [facility] CHEMISTRY Calcium Lvl 8.4 8.5 - 10.5 02/27/2013 LOW [facility] CHEMISTRY AGAP 13.9 10.0 - 20.0 02/27/2013 Normal [facility] CHEMISTRY CO2 24 24 - 32 02/27/2013 Normal [facility] CHEMISTRY Creatinine Lvl 0.5 0.5 - 1.4 02/27/2013 Normal [facility] CHEMISTRY Potassium Lvl 3.9 3.5 - 5.1 02/27/2013 Normal [facility] CHEMISTRY Sodium Lvl 140 135 - 145 02/27/2013 Normal [facility] CHEMISTRY Glucose Lvl 196 70 - 99 02/27/2013 [place] <sup>6</sup>Interpretive Data: Adult reference range values reflect the clinical guidelines
of the [place] [employer]. [facility] CHEMISTRY BUN 7 7 - 22 02/27/2013 Normal [facility] HEMATOLOGY MCH 26.1 27.0 - 31.0 02/27/2013 [facility] HEMATOLOGY MCHC 32.4 32.0 - 36.0 02/27/[address] [facility] HEMATOLOGY MCV 80.3 81.0 - 99.0 02/27/2013 [facility] HEMATOLOGY Hct 37.7 36.0 - 48.0 02/27/[address] [facility] HEMATOLOGY RBC 4.69 4.20 - 5.40 02/27/[address] [facility] HEMATOLOGY Hgb 12.2 12.0 - 16.0 02/27/[address] [facility] HEMATOLOGY WBC 7.8 3.7 - 10.4 02/27/[address] [facility] HEMATOLOGY MPV 8.4 7.4 - 10.4 02/27/[address] [facility] HEMATOLOGY Platelet 216 133 - 450 02/27/[address] [facility] HEMATOLOGY RDW 13.6 11.5 - 14.5 02/27/[address] [facility] HEMATOLOGY Eosinophils # 0.2 0.0 - 0.5 02/27/[address] [facility] HEMATOLOGY Monocytes # 0.5 0.0 - 0.8 02/27/[address] [facility] HEMATOLOGY Basophils 0.5 0.0 - 1.0 02/27/2013 Normal [facility] HEMATOLOGY Eosinophils 2.7 0.0 - 4.0 02/27/2013 Normal [facility] HEMATOLOGY Segs-Bands # 4.5 1.5 - 8.1 02/27/2013 Normal [facility] HEMATOLOGY Lymphocytes # 2.6 1.0 - 5.5 02/27/2013 Normal [facility] HEMATOLOGY Lymphocytes 33.3 20.0 - 40.0 02/27/2013 Normal [facility] HEMATOLOGY Monocytes 6.2 2.0 - 12.0 02/27/2013 Normal [facility] HEMATOLOGY Segs 57.3 45.0 - 75.0 02/27/2013 Normal [facility] BEDSIDE GLUCOSE TESTING Gluc POC Lifscn 187 70 - 99 02/27/2013 [place] <sup>3</sup>Interpretive Data: Upper Reportable Limit: 200 mg/dL. [facility] BEDSIDE GLUCOSE TESTING Comment1 Notify RN/MD 02/27/2013 NA [facility] CHEMISTRY AST 10 0 - 37 02/26/2013 Normal [facility] CHEMISTRY A/G Ratio 1.0 0.7 - 1.6 02/26/2013 Normal [facility] CHEMISTRY eGFR 94 02/26/2013 NA <sup>5</sup>Result Comment: The eGFR is calculated using the CKD-EPI formula. In most young, healthy individuals the eGFR will be >90 mL/min/1.73m2. The eGFR declines with age. An eGFR of 60-89 may be normal in some populations, particularly the elderly, for whom the CKD-EPI formula has not been extensively validated. Use of the eGFR is not recommended in the following populations:& lt;br/>
Individuals with unstable creatinine concentrations, including patients and those with serious co-morbid conditions.

Patients with extremes in muscle mass or diet.

The data above are obtained from the National Kidney Disease Education Program (NKDEP) which additionally recommends that when the eGFR is used in patients with extremes of body mass index for purposes of drug dosing, the eGFR should be multiplied by the estimated BMI. [facility] CHEMISTRY Globulin 3.5 2.0 - 4.0 02/26/2013 Normal [facility] CHEMISTRY B/C Ratio 21 6 - 25 02/26/2013 Normal [facility] CHEMISTRY Creatinine Lvl 0.7 0.5 - 1.4 02/26/2013 Normal [facility] CHEMISTRY Glucose Lvl 400 70 - 99 02/26/2013 [facility] <sup>7</sup>Result Comment: Critical Result(s) called to Carina Vaughan at 02/26/2013 07:59:06 CDT by [email or web address]. Read back OK.
<sup>8</sup>Interpretive Data: Adult reference range values reflect the clinical guidelines
of the [place] [employer]. [facility] CHEMISTRY CO2 22 24 - 32 02/26/2013 LOW [facility] CHEMISTRY Chloride Lvl 105 95 - 109 02/26/2013 Normal [facility] CHEMISTRY Sodium Lvl 138 135 - 145 02/26/2013 Normal [facility] CHEMISTRY Potassium Lvl 4.3 3.5 - 5.1 02/26/2013 Normal [facility] CHEMISTRY Albumin Lvl 3.5 3.5 - 5.0 02/26/2013 Normal [facility] CHEMISTRY Alk Phos 88 39 - 136 02/26/2013 Normal [facility] CHEMISTRY BUN 15 7 - 22 02/26/2013 Normal [facility] CHEMISTRY ALT 23 0 - 65 02/26/2013 Normal [facility] CHEMISTRY Total Protein 7.0 6.4 - 8.4 02/26/2013 Normal [facility] CHEMISTRY Bili Total 0.2 0.2 - 1.3 02/26/2013 Normal [facility] CHEMISTRY Calcium Lvl 8.5 8.5 - 10.5 02/26/2013 Normal [facility] CHEMISTRY AGAP 15.3 10.0 - 20.0 02/26/2013 Normal [facility] HEMATOLOGY MCV 80.0 81.0 - 99.0 02/26/2013 LOW [facility] HEMATOLOGY Hct 40.0 36.0 - 48.0 02/26/2013 Normal [facility] HEMATOLOGY Hgb 12.5 12.0 - 16.0 02/26/2013 Normal [facility] HEMATOLOGY RBC 5.00 4.20 - 5.40 02/26/2013 Normal [facility] HEMATOLOGY WBC 7.3 3.7 - 10.4 02/26/2013 Normal [facility] HEMATOLOGY MCHC 31.3 32.0 - 36.0 02/26/2013 LOW <sup>9</sup>Result Comment: RECHECKED RESULTS. [facility] HEMATOLOGY MCH 25.0 27.0 - 31.0 02/26/2013 LOW [facility] HEMATOLOGY Platelet 225 133 - 450 02/26/2013 Normal [facility] HEMATOLOGY RDW 12.6 11.5 - 14.5 02/26/2013 Normal [facility] HEMATOLOGY MPV 8.5 7.4 - 10.4 02/26/2013 Normal [facility] HEMATOLOGY Large Plt Slight *ABN* (02/26/2013 07:00:00) None Seen 02/26/2013 ABN [facility] HEMATOLOGY Polychrom Slight (02/26/2013 07:00:00) None Seen 02/26/2013 Normal [facility] HEMATOLOGY Basophils # 0.0 0.0 - 0.2 02/26/2013 Normal [facility] HEMATOLOGY Eosinophils # 0.2 0.0 - 0.5 02/26/2013 Normal [facility] HEMATOLOGY Segs-Bands # 4.6 1.5 - 8.1 02/26/2013 Normal [facility] HEMATOLOGY Monocytes # 0.5 0.0 - 0.8 02/26/2013 Normal [facility] [facility] HEMATOLOGY Lymphocytes # 2.0 1.0 - 5.5 02/26/2013 Normal [facility] HEMATOLOGY Monocytes 6.4 2.0 - 12.0 02/26/2013 Normal [facility] HEMATOLOGY Eosinophils 2.7 0.0 - 4.0 02/26/2013 Normal [facility] HEMATOLOGY Lymphocytes 27.4 20.0 - 40.0 02/26/2013 Normal [facility] HEMATOLOGY Segs 63.2 45.0 - 75.0 02/26/2013 Normal [facility] HEMATOLOGY Basophils 0.3 0.0 - 1.0 02/26/2013 Normal [facility] BEDSIDE GLUCOSE TESTING Comment2 Verify w/Lab 02/26/2013 NA [facility] Bacterial urine culture Bacterial urine culture Urine Culture [facility] Pathology Reports No Data Provided for This Section Diagnostic Reports Report Value Date Source Wrist complete DX LEFT WRIST RADIOGRAPH 3 VIEW CLINICAL INDICATION: Left wrist pain COMPARISON: None IMPRESSION: No acute fractures are visualized. The scapholunate interval is mildly widened. The capitate is in its normal anatomic position. There is narrowing of the radiocarpal joint. There is ulnar minus variance. There is no evidence of lunate osteonecrosis. SL:16 05/26/2016 [facility] [place] Consultation Notes No Data Provided for This Section Discharge Summaries No Data Provided for This Section History and Physicals No Data Provided for This Section Vital Signs Vital Sign Value Date Comments Source Respitory Rate 20 04/01/2015 [facility] Systolic (mm Hg) 124 04/01/2015 [facility] Diastolic (mm Hg) 59 04/01/2015 [facility] Systolic (mm Hg) 109 04/01/2015 [facility] Diastolic (mm Hg) 66 04/01/2015 [facility] Height 160.02 cm 04/01/2015 [facility] BMI Calculated 35.15 04/01/2015 [facility] Weight 90 04/01/2015 [facility] Systolic (mm Hg) 122 04/01/2015 [facility] Diastolic (mm Hg) 72 04/01/2015 [facility] Respitory Rate 24 04/01/2015 [facility] Temperature Oral (F) 97.8 F 04/01/2015 [facility] Heart Rate 86 04/01/2015 [facility] Respitory Rate 12 04/01/2015 [facility] Systolic (mm Hg) 119 03/18/2015 [facility] Diastolic (mm Hg) 72 03/18/2015 [facility] Respitory Rate 19 03/18/2015 [facility] Systolic (mm Hg) 112 03/18/2015 [facility] Diastolic (mm Hg) 66 03/18/2015 [facility] Respitory Rate 18 03/18/2015 [facility] Respitory Rate 21 03/18/2015 [facility] Systolic (mm Hg) 113 03/18/2015 [facility] Diastolic (mm Hg) 66 03/18/2015 [facility] Heart Rate 86 03/11/2015 [facility] Temperature Oral (F) 98 F 03/11/2015 [facility] BMI Calculated 35.15 03/11/2015 [facility] Weight 90 03/11/2015 [facility] Height 160.02 cm 03/11/2015 [facility] Systolic (mm Hg) 122 03/04/2015 [facility] Diastolic (mm Hg) 86 03/04/2015 [facility] Respitory Rate 18 03/04/2015 [facility] Systolic (mm Hg) 118 03/04/2015 [facility] Diastolic (mm Hg) 70 03/04/2015 [facility] Respitory Rate 21 03/04/2015 [facility] Respitory Rate 15 03/04/2015 [facility] Systolic (mm Hg) 116 03/04/2015 [facility] Diastolic (mm Hg) 91 03/04/2015 [facility] Height 162.56 cm 02/11/2015 [facility] Weight 89.909 02/11/2015 [facility] BMI Calculated 34.02 02/11/2015 [facility] Temperature Oral (F) 98.1 F 02/11/2015 [facility] Heart Rate 98 02/11/2015 [facility] Weight 200 01/13/2015 [facility] Temperature Oral (F) 98.5 F 01/13/2015 [facility] Heart Rate 88 01/13/2015 [facility] Systolic (mm Hg) 137 01/13/2015 [facility] Diastolic (mm Hg) 76 01/13/2015 [facility] Systolic (mm Hg) 109 12/30/2014 [facility] Diastolic (mm Hg) 60 12/30/2014 [facility] Respitory Rate 18 12/30/2014 [facility] Height 160.02 cm 12/30/2014 [facility] Weight 88.182 12/30/2014 [facility] BMI Calculated 34.44 12/30/2014 [facility] Weight 194 09/05/2014 [facility] Temperature Oral (F) 97.6 F 09/05/2014 [facility] Heart Rate 99 09/05/2014 [facility] Systolic (mm Hg) 149 09/05/2014 [facility] Diastolic (mm Hg) 89 09/05/2014 [facility] Systolic (mm Hg) 108 03/11/2013 [facility] Diastolic (mm Hg) 68 03/11/2013 [facility] Respitory Rate 18 03/11/2013 [facility] Heart Rate 65 03/11/2013 [facility] Diastolic (mm Hg) 66 03/11/2013 [facility] Systolic (mm Hg) 94 03/11/2013 [facility] Respitory Rate 12 03/11/2013 [facility] Respitory Rate 18 03/11/2013 [facility] Systolic (mm Hg) 91 03/11/2013 [facility] Diastolic (mm Hg) 61 03/11/2013 [facility] Heart Rate 88 03/11/2013 [facility] Weight 77.273 03/11/2013 [facility] Height 160.02 cm 03/11/2013 [facility] Diastolic (mm Hg) 90 02/27/2013 [facility] Respitory Rate 20 02/27/2013 [facility] Systolic (mm Hg) 135 02/27/2013 [facility] Heart Rate 95 02/27/2013 [facility] Temperature Oral (F) 97.7 F 02/27/2013 [facility] Systolic (mm Hg) 118 02/27/2013 [facility] Diastolic (mm Hg) 73 02/27/2013 [facility] Respitory Rate 18 02/27/2013 [facility] Heart Rate 75 02/27/2013 [facility] Temperature Oral (F) 97.8 F 02/27/2013 [facility] Heart Rate 79 02/27/2013 [facility] Temperature Oral (F) 98.4 F 02/27/2013 [facility] Respitory Rate 19 02/27/2013 [facility] Systolic (mm Hg) 125 02/27/2013 [facility] Diastolic (mm Hg) 82 02/27/2013 [facility] Height 160.02 cm 02/19/2013 [facility] Weight 77.273 02/19/2013 [facility] Encounters Location Location Details Encounter Type Encounter Number Reason For Visit Attending Provider ADM Date DC Date Status Source [facility] OU [id number] HUNG ENRIQUEZ SR 02/26/2013 02/27/2013 Discharged [facility] DS [id number] GERD HUNG ENRIQUEZ SR 03/11/2013 Active [facility] Colorectal Surgery Office Visit [id number] Estefany Durand MD 09/05/2014 09/05/2014 [facility] Lab Report [id number] Estefany Durand MD 09/07/2014 09/07/2014 [facility] Bedded Outpatient [id number] Estefany Durand 12/30/2014 12/30/2014 [facility] Colorectal Surgery Office Visit [id number] Estefany Durand MD 01/13/2015 01/13/2015 [facility] OBS Day Surgery [id number] Estefany Durand 03/04/2015 03/04/2015 [facility] Colorectal Surgery Office Visit [id number] Estefany Durand MD 03/17/2015 03/17/2015 [facility] OBS Day Surgery [id number] Estefany Durand 03/18/2015 03/18/2015 [facility] Colorectal Surgery Office Visit [id number] Estefany Durand MD 04/01/2015 04/01/2015 [facility] OBS Day Surgery [id number] Estefany Durand 04/01/2015 04/01/2015 [facility] Outpatient [facility] [place] [facility] [id number] Kwabena Gayle 05/26/2016 05/27/2016 [facility] [id number] PEPE BOSE MD 10/14/2017 [facility] Discharged Inpatient [id number] LAURYN CEDEÑO MD 08/05/2018 08/07/2018 [facility] Procedures Procedure Code Date Perfomer Comments Source Magnetic resonance imaging of brain without contrast [id number] 08/06/2018 [facility] Magnetic resonance angiography of head without contrast [id number] 08/06/2018 [facility] Magnetic resonance angiography of neck without contrast [id number] 08/06/2018 [facility] Computed tomography of brain without radiopaque contrast [id number] 08/05/2018 [facility] COLONOSCOPY AND BIOPSY [id number] 10/14/2017 [facility] COLONOSCOPY W/LESION REMOVAL 05234 10/14/2017 [facility] COLONOSCOPY W/LESION REMOVAL 78280 10/14/2017 [facility] Laparoscopic adjustable gastric banding [id number] [facility] Tubal ligation [id number] [facility] Colonoscopy and biopsy of colon [id number] [facility] [id number] [id number] [id number] [facility] and Plan Assessment and Plan Date Source Extracted from:Title: Clinical Document Author: Estefany Durand MD Date: 04/01/15 History of Present Illness Chief Complaint: drainage from Interstim site The pt presents today for f/u of Interstim phase II and reports noticing purulent drainage from the wound site, and possible subjective fevers x3 days. She did not call us initially. She called this morning and we asked her to come to the clinic immediately. Denies pain at the implantation site, she reports purulence that was significant on he first day and now it is improving. She is s/p Interstim phase II neurostimulator implantation on 03/18/15. Overall she reports no more accidents, however she has to have more BMs after the first one and she has to clean constantly. Review Of Systems General: Denies chills, fever, weight loss, weight gain, loss of appetite Eyes: Denies vision loss, retina problems Ears/Nose/Throat: Denies ringing in ears, hearing problems, congestion, dental problems, hoarseness, difficulty swallowing, recent sore throat Cardiovascular: Denies irregular heartbeat, chest pain, heart murmur, abnormal heart valve Pulmonary: Denies productive cough with sputum, shortness of breath, wheezing Genitourinary: Denies frequent urination, blood in urine, urinary incontinence, difficulty urinating, pneumaturia, fecaluria, vaginal discharge Abdominal/GI: Complains of incontinence of stool; Denies nausea/vomiting, diarrhea, constipation, indigestion, abdominal pain, bloody or dark stools, mucus with stools Musculoskeletal: Denies back pain, joint pain, joint swelling Skin: Denies skin rashes, skin itching Neurologic: Denies numbness, weakness, headaches, memory loss, seizures, fainting/blackouts, migraines Psychiatric: Denies anxiety, depression, suicidal thoughts Endocrine: Denies heat/cold intolerance, excessive hunger, excessive thirst, excessive urination, hormonal abnormalities Liver: Denies jaundice Hematologic/Lymphatic: Denies abnormal bleeding, abnormal bruising, enlarged lymph glands Physical Exam Vital Signs - Entered by LIZ Wt: 200lbs General: well developed, well nourished, in no acute distress Head/Neck: normocephalic, neck supple, no palpable thyroid masses Eyes: extra ocular muscles intact, sclera anicteric, pupils within normal limits Ears/Nose/Throat: no abnormalities noted Cardiovascular: regular rate and rhythm, no murmurs or gallop, no peripheral edema Chest: no chest deformities, rises symmetrically, no palpable lesions Respiratory: rises symmetrically, clear to ascultation, no wheezes or ronchi Genitourinary: normal genitalia Abdomen: soft, non tender, non distended, no organomegaly, no masses, no hernias, no rebound, no peritonitis Anorectal: deferred Sacral: interstim neurostimulator in place w/ evidence of serous drainage, ~1- 2cm wound dehiscense and presence of battery device exposure. No evidence of cellulitis. Minor purulence was noted. Extremities normal gait, muscle tone and range of motion, no cyanosis or tenderness Skin: normal color, turgor, no rash or cyanosis Lymphatic: no palpable lymph nodes Neurologic: normal sensation and strength, normal gait and speech, moves all extremities Psychiatric: alert and oriented, normal judgment, mood and affect Impression and Recommendations: Problem # 1: FECAL INCONTINENCE, URGENCY (ICD-787.63) (GZP89-V92.2) Assessment: Comment Only Recommend to proceed with removal of infected interstim with the lead in the next available OR. We will defer reimplantation at a later time once the infection resolves. Prescribed Bactrim/ she will start today. All questions were answered to the patient's satisfaction and the pt agrees with the plan. The patient agrees to proceed with the procedure. Risks, benefits and alternatives to the procedure were discussed in great detail. Other Orders: Ofc Vst, Est Level III - 80086 (CPT-32904) 04/01/2015 [facility] Extracted from:Title: Clinical Document Author: Estefany Durand MD Date: 03/18/15 PREOPERATIVE DIAGNOSIS: Fecal incontinence status post InterStim therapy, stage I. POSTOPERATIVE DIAGNOSIS: Fecal incontinence status post InterStim therapy, stage I. PROCEDURE: InterStim therapy, stage II. SURGEON: Dr. Durand. TRUCK DRIVER: None. ANESTHESIA: MAC. IV FLUIDS: 100 mL URINE OUTPUT: No Cruz. ESTIMATED BLOOD LOSS: 3 mL LOCAL ANESTHESIA Local anesthesia 10 mL 0.25% Marcaine with epinephrine. SPECIMENS: None COUNTS: The sponge, needle, lap and instrument counts were correct at the end of the case x 2. INDICATIONS FOR PROCEDURE: Status post InterStim therapy trial 1. The patient reported at least 50% improvement of her fecal incontinence symptoms and she presents for an InterStim therapy, stage II. She understands her condition, the operative procedure plan, the risk/benefit ratio and potential for complications including but not limited to pain, bleeding, infection, persistence, recurrence of incontinence symptoms, need for removal or replacement or repositioning of theInterStim and perioperative cardiopulmonary risks. Informed consent was obtained. All questions were answered to her satisfaction. PROCEDURE IN DETAIL: The patient was brought to the operating room, placed on the operative table in prone jackknife position, and MAC anesthesia was induced successfully. The perineum was prepped and draped in the usual standard sterile fashion. Local anesthesia 0.25% Marcaine with epinephrine was injected. The previous right lateral buttock incision was opened and using blunt dissection the Lead/ percutaneous extension connection was identified and elevated. The percutaneous extension was cut and removed from the field, ensuring sterility. The subcutaneous pocket anterior to the muscle surface was enlarged and hemostasis was established. The sutures holding the protective boot were cut and the protective boot was retracted, the setscrews were exposed and loosened with the hex wrench. The boot was removed and discarded. The lead was cleaned off bloody fluid and dried. The lead was inserted into the head of the InterStim neurostimulator until the blue tip was visualized at the distal window. The single setscrew was tightened. The neurostimulator was placed into the subcutaneous pocket with the etched identification side placed upwards and the excessive leads wrapped counterclockwise around the neurostimulator. The programming head was placed over the implanted neurostimulator in a sterile cover to ensure adequate lead connection and that parameters were within normal limits. Impedances were confirmed to be within normal limits, greater than 50 and less than 4000. The wound was irrigated with saline and approximated with 2-0 Vicryl in subcutaneous inverted interrupted sutures and 4-0 Monocryl in runn ing subcuticular sutures and Dermabond was applied. The sponge, needle, lap and instrument counts were correct at the end of the case x 2. The patient was transferred to postanesthesia care unit in stable hemodynamic condition. Using the initial process control programmer, the patient was programmed to the electrodes for optimum sensation and given instructions on utilizing the patient program properly prior to discharge. Complex programming of the neurostimulator was performed and final electrodes were set to 0 negative and 3 positive. CPT code 91367, insertion and replacement of peripheral neurostimulator pulse generator or promotion specialist, direct or inductive coupling, and 53549, electronic analysis of implanted neurostimulator pulse generator. Device code [id number] and C1787 Extracted from:Title: Clinical Document Author: Estefany Durand MD Date: 03/18/15 History of Present Illness The pt presents today for f/u of interstim and reports doing well. She had 1 accident over the weekend. However, she reports the external neurostimulator battery over the weekend, and she has been unable to replace it. Denies pain at the site of the neurostimulator site, infection, fever. Tolerating regular diet. Denies constipation, diarrhea Review Of Systems General: Denies chills, fever, weight loss, weight gain, loss of appetite Eyes: Denies vision loss, retina problems Ears/Nose/Throat: Denies ringing in ears, hearing problems, congestion, dental problems, hoarseness, difficulty swallowing, recent sore throat Cardiovascular: Denies irregular heartbeat, chest pain, heart murmur, abnormal heart valve Pulmonary: Denies productive cough with sputum, shortness of breath, wheezing Genitourinary: Denies frequent urination, blood in urine, urinary incontinence, difficulty urinating, pneumaturia, fecaluria, vaginal discharge Abdominal/GI: Complains of incontinence of stool; Musculoskeletal: Denies back pain, joint pain, joint swelling Skin: Denies skin rashes, skin itching Neurologic: Denies numbness, weakness, headaches, memory loss, seizures, fainting/blackouts, migraines Psychiatric: Denies anxiety, depression, suicidal thoughts Endocrine: Denies heat/cold intolerance, excessive hunger, excessive thirst, excessive urination, hormonal abnormalities Liver: Denies jaundice Hematologic/Lymphatic: Denies abnormal bleeding, abnormal bruising, enlarged lymph glands Physical Exam Vital Signs - Entered by LIZ Wt: 200lbs General: well developed, well nourished, in no acute distress Head/Neck: normocephalic, neck supple, no palpable thyroid masses Eyes: extra ocular muscles intact, sclera anicteric, pupils within normal limits Ears/Nose/Throat: no abnormalities noted Cardiovascular: regular rate and rhythm, no murmurs or gallop, no peripheral edema Chest: no chest deformities, rises symmetrically, no palpable lesions Respiratory: rises symmetrically, clear to ascultation, no wheezes or ronchi Genitourinary: normal genitalia Abdomen: soft, non tender, non distended, no organomegaly, no masses, no hernias, no rebound, no peritonitis Anorectal: deferred Sacral: interstim neurostimulator in place. No evidence of purulence or cellulitis Extremities normal gait, muscle tone and range of motion, no cyanosis or tenderness Skin: normal color, turgor, no rash or cyanosis Lymphatic: no palpable lymph nodes Neurologic: normal sensation and strength, normal gait and speech, moves all extremities Psychiatric: alert and oriented, normal judgment, mood and affect Impression and Recommendations: Problem # 1: FECAL INCONTINENCE, SMEAR (ICD-787.62) (DJE50-Q27.1) Assessment: Comment Only Orders: Ofc Vst, Est Level III - 37016 (CPT-53742) Problem # 2: FECAL INCONTINENCE, URGENCY (ICD-787.63) (MLK80-W88.2) Assessment: Comment Only Orders: Ofc Vst, Est Level III - 27668 (CPT-18626) Problem # 3: FECAL INCONTINENCE, FULL (ICD-787.60) (OIY45-T45.9) Assessment: Comment Only Problem # 4: INCOMPLETE EMPTYING (ICD-788.21) (XUU66-U19.14) Assessment: Comment Only The pt has had >50% improvement in sxs since last visit. I recommend, and the pt desires to proceed with, Interstim phase II neurostimulator implantation The patient agrees to proceed with the procedure. Risks, benefits and alternatives to the procedure were discussed in great detail. The patient will schedule the procedure in the near future. All questions were answered to the patient's satisfaction 03/18/2015 [facility] Extracted from:Title: Clinical Document Author: Estefany Durand MD Date: 03/04/15 PREOPERATIVE DIAGNOSIS: Fecal incontinence. POSTOPERATIVE DIAGNOSIS: Fecal incontinence. PROCEDURE: InterStim therapy, stage I trial. SURGEON: Dr. Durand. TRUCK DRIVER: None. ANESTHESIA: MAC. IV FLUIDS: 200 mL. ESTIMATED BLOOD LOSS: 5 mL. LOCAL ANESTHESIA: 30cc 0.25% Marcaine. SPECIMENS: None. FINDINGS: Lead placed into Rt S3 foramen. COMPLICATIONS: None. COUNTS: Needle, sponge count correct x 2. INDICATIONS FOR PROCEDURE: Fecal incontinence. PROCEDURE IN DETAIL: The patient was brought to the operating room and placed in a prone position. MAC anesthesia was induced successfully. Pillows were placed under the lower abdomen to flatten the sacrum and under shins to allow the toes to dangle freely. The patient was prepped and draped in the usual standard sterile fashion using ChloraPrep solution, the C arm was drapped and was moved into AP position to provide fluoroscopic mapping of the sacral region which included marking out midline of the sacrum, SI joints, sciatic notches and medial foraminal borders and sacral foramena. The C-arm was then moved to the lateral position to image the area from sacral promontory to the coccyx. Local injection of 0.25% Marcaine was administered. A 3.5 inches sized foramen needle was introduced approximately 2 cm above the sciatic notch and 2 cm lateral to the sacral midline, feeling for foraminal margins until the right S3 foramen was identified and penetrated. The depth of the needle was confirmed and adjusted fluoroscopically. Proper needle position was confirmed by patient identification of location of sensation, direct observation of the lifting of the perineum or "bellowing" and observation of plantar flexion of the great toe utilizing external Test stimulator. The foramen needle stylet was removed and a directional guide was placed and confirmed fluoroscopically. The foramen needle was removed. An incision was made peripherally to the directional guidewire through the fascial layer. The Lead introducer sheath with dilator was placed along the directional guide and directed into the foramen ensuring the radiopack marker of the lead introducer did not extend beyond the anterior edge of the sacrum. The dilator was unlocked and removed along with the directional guide. The lead was then placed through the introducer sheath to the first white line. The position was checked fluoroscopically. The lead was then further introduced until 3 electrodes were visible below the sacrum. Each electrode was tested for location of patient sensation, visualization of "tay" and plantar flexion of the great toe. After satisfactory position was confirmed, the introducer sheath was retracted under continuous fluoroscopy, deploying lead tines into the perisacral tissue. Further incision was made in the subcutaneous tissue posterior to the iliac crest and lateral to the sacrum. Blunt dissection was continued until the gluteal fascia was identified. Hemostasis was achieved. A tunneling tool with straw was placed from the lead exit site subcutaneously to the incised pocket site. The tunneling tool was removed and the lead was fed through the straw and pulled out at the pocket site. The lead was cleaned of bodily fluids, dried and a protective boot was placed over the lead. The lead was inserted into the temporary percutaneous extension and the metal bands were aligned. The 4 setscrews were tightened with the hex wrench. The boot was pushed over the connection and 0 silk ties were sutured to the boot grooves on either side of the connection. A tunnel was made subcutaneously and exited to the puncture site above the lateral right buttock. The percutaneous extension was placed through the straw and exposed and connected to the twist local grade cable. The wounds were irrigated with saline and were closed with a 2-0 Vicryl subcutaneous interrupted followed by 4-0 Monocryl subcuticular sutures. All needle counts were correct. Dermabond was applied. Gauze was placed under the twist cable connector. The patient was transferred to PACU in satisfactory condition. Using the external test stimulator, the patient was programmed to the electrode of optimum sensation and given instructions on utilizing the external test stimulator prior to discharge. A diary will be kept until return appointment to my office and discuss results of this test stimulation. CPTs: 51867 incision for amputation neurostimulator electrodes sacral nerve transforamenal placement [id number] fluoroscopyup to 1 hour; device codes C1778 lead and neurostimulator (implantable) and C1894 introducer/sheath, other than guiding, other than intracardiac. Extracted from:Title: Clinical Document Author: Estefany Durand MD Date: 03/04/15 History of Present Illness Chief Complaint: Pt here for follow-up on EUS, PNLS and EMG The pt presents today for f/u of incontinence and reports doing well. PNLS, EMG, EAS reveals an intact sphincter muscle circumferentially and a 75% disruption of the external sphincter muscle in the anterior midline with angulation of 60 degrees; the remainder of the external sphincter muscle was intact. 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 >10sec at the anterior midline Family History Summary: Reviewed history and no changes required: 02/01/2015 Social History: Reviewed history from 09/05/2014 and no changes required: Passive smoke exposure - no Alcohol Use - no Drug Use - no Risk Factors: Passive smoke exposure: no Drug use: no Caffeine use: 2 drinks per day Alcohol use: no Previous Tobacco Use: Passive smoke exposure: no Drug use: no Caffeine use: 2 drinks per day Previous Alcohol Use: Signed On - 09/05/2014 Alcohol use: no Vital Signs: Patient Profile: 64 Years Old Female CC: Pt here for follow-up on EUS, PNLS and EMG Weight: 200 pounds (90.91 kg) Temp: 98.5 degrees F (36.94 degrees C) oral Pulse rate: 88 / minute Pulse rhythm: regular BP sittin / 76 (right arm) Vitals Entered By: Parish Vides (January 13, 2015 3:54 PM) Review Of Systems General: Denies chills, fever, weight loss, weight gain, loss of appetite Eyes: Denies vision loss, retina problems Ears/Nose/Throat: Denies ringing in ears, hearing problems, congestion, dental problems, hoarseness, difficulty swallowing, recent sore throat Cardiovascular: Denies irregular heartbeat, chest pain, heart murmur, abnormal heart valve Pulmonary: Denies productive cough with sputum, shortness of breath, wheezing Genitourinary: Denies frequent urination, blood in urine, urinary incontinence, difficulty urinating, pneumaturia, fecaluria, vaginal discharge Abdominal/GI: Complains of incontinence of stool; Musculoskeletal: Denies back pain, joint pain, joint swelling Skin: Denies skin rashes, skin itching Neurologic: Denies numbness, weakness, headaches, memory loss, seizures, fainting/blackouts, migraines Psychiatric: Denies anxiety, depression, suicidal thoughts Endocrine: Denies heat/cold intolerance, excessive hunger, excessive thirst, excessive urination, hormonal abnormalities Liver: Denies jaundice Hematologic/Lymphatic: Denies abnormal bleeding, abnormal bruising, enlarged lymph glands Physical Exam Vital Signs - Entered by LIZ Wt: 200lbs Temp: 98.5 deg F. Temp site: oral Pulse rate: 88 Rhythm: regular BP: 137/76 General: well developed, well nourished, in no acute distress Head/Neck: normocephalic, neck supple, no palpable thyroid masses Eyes: extra ocular muscles intact, sclera anicteric, pupils within normal limits Ears/Nose/Throat: no abnormalities noted Cardiovascular: regular rate and rhythm, no murmurs or gallop, no peripheral edema Chest: no chest deformities, rises symmetrically, no palpable lesions Respiratory: rises symmetrically, clear to ascultation, no wheezes or ronchi Genitourinary: normal genitalia Abdomen: soft, non tender, non distended, no organomegaly, no masses, no hernias, no rebound, no peritonitis Anorectal: deferred Extremities normal gait, muscle tone and range of motion, no cyanosis or tenderness Skin: normal color, turgor, no rash or cyanosis Lymphatic: no palpable lymph nodes Neurologic: normal sensation and strength, normal gait and speech, moves all extremities Psychiatric: alert and oriented, normal judgment, mood and affect Impression and Recommendations: Problem # 1: FECAL INCONTINENCE, URGENCY (ICD-787.63) (MQM14-A40.2) Problem # 2: FECAL INCONTINENCE, SMEAR (ICD-787.62) (KHE88-A02.1) Problem # 3: FECAL INCONTINENCE, FULL (ICD-787.60) (MBX32-E95.9) Problem # 4: INCOMPLETE EMPTYING (ICD-788.21) (BKI14-M24.14) Assessment: Comment Only We discussed conservative management with pelvic floor re-training vs surgical management of her incontinence including solesta, Interstim phase I trial, and sphincteroplasty. I recommend to proceed with Interstim phase I trial and the pt desires to proceed. The patient agrees to proceed with the procedure. Risks, benefits and alternatives to the procedure were discussed in great detail. The patient will schedule the procedure in the near future. All questions were answered to the patient's satisfaction Total office visit, face to face consultation, coordination of care, and exam/procedure >25min. 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 Bose for surgical consultation for fecal incontinence. She reports difficulty w/ emptying and hygiene, full incontinence episodes >1/mo, accidents to loose stool and gas >2x/wk, defecatory urgency for > 3years. Her sxs affect her daily life and she currently wears pads. Wexner fecal incontinence score: 15. She has had 1 vaginal delivery and 1 episiotomy. Last colonoscopy Dec 2013-benign polyps PMH significant for T2DM (A1c elevated, BS >300). 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 Weight: 194 pounds (88.18 kg) Temp: 97.6 degrees F (36.44 degrees C) oral Pulse rate: 99 / minute Pulse rhythm: regular BP sittin / 89 (right arm) Cuff size: regular Vitals Entered By: Hortencia Winston (September 05, 2014 2:52 PM) Review Of Systems General: Denies chills, fever, weight loss, weight gain, loss of appetite Eyes: Denies vision loss, retina problems Ears/Nose/Throat: Denies ringing in ears, hearing problems, congestion, dental problems, hoarseness, difficulty swallowing, recent sore throat Cardiovascular: Denies irregular heartbeat, chest pain, heart murmur, abnormal heart valve Pulmonary: Denies productive cough with sputum, shortness of breath, wheezing Genitourinary: Denies frequent urination, blood in urine, urinary incontinence, difficulty urinating, pneumaturia, fecaluria, vaginal discharge Abdominal/GI: Complains of incontinence of stool; Musculoskeletal: Denies back pain, joint pain, joint swelling Skin: Denies skin rashes, skin itching Neurologic: Denies numbness, weakness, headaches, memory loss, seizures, fainting/blackouts, migraines Psychiatric: Denies anxiety, depression, suicidal thoughts Endocrine: Denies heat/cold intolerance, excessive hunger, excessive thirst, excessive urination, hormonal abnormalities Liver: Denies jaundice Hematologic/Lymphatic: Denies abnormal bleeding, abnormal bruising, enlarged lymph glands Physical Exam Vital Signs - Entered by LIZ Wt: 194lbs Temp: 97.6 deg F. Temp site: oral Pulse rate: 99 Rhythm: regular BP: 149/89 General: well developed, well nourished, in no acute distress Head/Neck: normocephalic, neck supple, no palpable thyroid masses Eyes: extra ocular muscles intact, sclera anicteric, pupils within normal limits Ears/Nose/Throat: no abnormalities noted Cardiovascular: regular rate and rhythm, no murmurs or gallop, no peripheral edema Chest: no chest deformities, rises symmetrically, no palpable lesions Respiratory: rises symmetrically, clear to ascultation, no wheezes or ronchi Genitourinary: normal genitalia Abdomen: soft, non tender, non distended, no organomegaly, no masses, no hernias, no rebound, no peritonitis Anorectal: Digital rectal exam reveals decreased sphincter tone and squeeze tone and near absent perineal body. Inspection and anoscopy reveals a normal anal canal. Rigid proctoscopy reveals normal rectum up to the rectosigmoid junction. No proctitis, No mass, No polyps or bleeding. No mucusy drainage. Brown stool in vault. Secondary to limited visualization by stool, smaller lesions may not be seen at this time. Extremities normal gait, muscle tone and range of motion, no cyanosis or tenderness Skin: normal color, turgor, no rash or cyanosis Lymphatic: no palpable lymph nodes Neurologic: normal sensation and strength, normal gait and speech, moves all extremities Psychiatric: alert and oriented, normal judgment, mood and affect Impression and Recommendations: Problem # 1: FECAL INCONTINENCE, FULL (ICD-787.60) (ABH96-O86.9) Problem # 2: INCOMPLETE EMPTYING (ICD-788.21) (DAQ78-I93.14) Problem # 3: FECAL INCONTINENCE, SMEAR (ICD-787.62) (CAW07-K30.1) Problem # 4: FECAL INCONTINENCE, URGENCY (ICD-787.63) (RQV31-Q74.2) Assessment: Comment Only We discussed conservative vs surgical management of her incontinence including solesta, Interstim phase I trial, and sphincteroplasty. I recommend a PNLS, EMG, and EAS to evaluate the anatomy and function of her sphincter muscle. Continue kegel exercises and high fiber diet. Pamphlets were provided. f/u 10days after electively scheduled procedure. Problem # 5: COLON POLYPS (ICD-V12.72) (YTY80-H63.010) ] 12/30/2014 [facility] Plan of Care Plan of Care Date Source Discharge Date 08/07/18 9:20am Disposition HOME, SELF-CARE Instructions/Education Provided Diabetes and Diet Hyperglycemia Urinary Tract Infection - Women Prescriptions See Medication Section Referrals LAURYN CEDEÑO MD (Internal Medicine) Order Date: 5-7 Days Entered Date: 08/07/2018 6:57am Address: [address] [place] [id number] Additional Instructions/Education activity as tolerated f/u with pcp in 1-2 weeks DO NOT STOP ANTICOAGULANTS 08/07/2018 [facility] Social History Social History Date Source Smoking Status Start Date Stop Date Never Smoker 08/07/2018 [facility] Social History TypeResponse Substance Abuse Use: None. Alcohol Current, Previous treatment: None. Smoking Status Never smoker; Exposure to Tobacco Smoke None; Cigarette Smoking Last 365 Days No; Reg Smoking Cessation Counseling No 12/30/2014 [facility] [place] Social History TypeResponse Substance Abuse Use: None. Alcohol Current, Previous treatment: None. Smoking Status Never smoker; Exposure to Tobacco Smoke None; Cigarette Smoking Last 365 Days No; Reg Smoking Cessation Counseling No 12/30/2014 [facility] Family History No Data Provided for This Section Advance Directives Order Name Results Value Date Source Advance Directives Advance Directives Directive Response Recorded Date/Time Does the patient have an advance directive? No 08/05/18 11:00pm If yes, is advance directive on file with [facility]? No 02/16/10 9:35am If not on file with [facility] will patient provide a copy? No 11/20/13 11:34am Do you have a Directive to Physician? No 08/05/18 10:59am Do you have a Medical Power of Stock Speculator? No 08/05/18 10:59am Do you have an out of hospital Do Not Resuscitate Order? No 08/05/18 10:59am Do you have any special needs we should be aware of? No 08/05/18 10:59am Do you have a support person here with you today? No 08/05/18 10:59am Did patient receive Notice of Privacy Practices? Yes 08/05/18 10:59am Did patient receive patient rights and responsibilities? Yes 08/05/18 10:59am 08/07/2018 [facility] Functional Status No Data Provided for This Section
== END 2019-07-15 03:13 | disposition home or self-care (01) ==
LOC: ER 02:18
DX: M54.5 Low back pain (principal); G89.29 Other chronic pain
CPT/HCPCS: 99282

== ENCOUNTER 2019-09-16 21:17 | Observation (INO) | payer BC, MEDICARE ==
[~2019-09-16] VITALS: Ht 160 cm; Wt 104.3 kg
[2019-09-16 20:00] VITALS: BP 163/89
[2019-09-16] MEDS ORDERED: PROMETHAZINE 12.5MG/ NACL 0.9% 12.5 MG/50 ML BAG IV PRN (22:00)
[2019-09-16] MEDS ORDERED: MECLIZINE HCL 12.5 MG TAB PO PRN (22:00)
[2019-09-16] MEDS ORDERED: PROMETHAZINE 12.5MG/ NACL 0.9% 50 ML IV PRN (22:15)
[2019-09-16] MEDS: SODIUM CHLORIDE 0.9% 1000ML 1,000 ML IV SCH (23:00)
[2019-09-17] VITALS (9 sets, daily range): BP systolic 118–159; BP diastolic 62–77
[2019-09-17] MEDS ORDERED: ATENOLOL50 MG PO (03:49)
[2019-09-17] MEDS ORDERED: PRAVASTATIN SOD40 MG PO (03:49)
[2019-09-17] MEDS ORDERED: LEVEMIR100 UNIT/1 SQ (03:49)
[2019-09-17] MEDS ORDERED: GABAPENTIN300 MG PO (03:49)
[2019-09-17] MEDS ORDERED: GLIPIZIDE5 MG PO (03:49)
[2019-09-17 05:42] LABS: ANION GAP 12.3 mmol/L (8-16); BLOOD UREA NITROGEN 9 mg/dL (7-26); BUN/CREATININE RATIO 12 (6-25); CARBON DIOXIDE 26 mmol/L (22-29); CHLORIDE 105 mmol/L (98-107); CREATININE, SERUM 0.77 mg/dL (0.57-1.11); EST GLOMERULAR FILTRATION RATE > 60 ML/MIN (60-); GLUCOSE 248 mg/dL (74-118); MAGNESIUM 1.7 MG/DL (1.3-2.1); POTASSIUM 4.3 mmol/L (3.5-5.1); SODIUM 139 mmol/L (136-145)
--- NOTE | 2019-09-17 06:30 | NUR ---
PRIMARY CARE PHYSICIAN: None CHIEF COMPLAINT: room spinning. HISTORY OF PRESENT ILLNESS: This is a 68-year-old woman with hx BPPV, developed dizziness and room spinning symptoms; Sent to hospital due to N/V. PAST MEDICAL HISTORY: Hypertension, hyperlipidemia, Let thalamic stroke, UTI, BPPV PAST SURGICAL HISTORY: Tubal ligation, tonsillectomy, gastric banding, status post removal. ALLERGIES: PER ELECTRONIC MEDICAL RECORD. FAMILY HISTORY/SOCIAL HISTORY: Patient is . She has 1 children. No alcohol, illicits or cigarettes. MEDICATIONS: Per electronic medical records. REVIEW OF SYSTEMS: Denies any dizziness, chest pain, shortness of breath, fever, chills, sweats, nausea, vomiting, diarrhea, headache, back pain, dizziness, arm weakness. PHYSICAL EXAMINATION VITAL SIGNS: Have been reviewed. GENERAL: A tired-appearing woman resting in bed. HEENT: Anicteric. CARDIOVASCULAR: Normal S1 and S2. LUNGS: Moderate breath sounds. ABDOMEN: Soft, nontender and nondistended. EXTREMITIES: No edema or calf tenderness. NEUROLOGICAL: Alert and oriented times 3. She moves all extremities with 5/5 motor strength in all extremities. She has no visual field deficits. LABS: Reviewed. MEDICATIONS: Reviewed. ASSESSMENT: A 67-year-old woman with: BPPV UTI DM2 HLD Obesity BMI 32.6 PLAN meclizine IVF Home meds IV ceftriaxone hba1c/lipids SCD Eugenio Cardoso MD, PHD.
[2019-09-17 06:41] LABS: BASOPHILS % 0.3 % (0.0-1.0); EOSINOPHILS % 0.2 % (0.0-6.0); HEMATOCRIT 35.9 % (34.2-44.1); HEMOGLOBIN 11.1 g/dL (12.0-16.0); LYMPHOCYTES # (AUTO) 2.2 (1.0-3.2); LYMPHOCYTES % 22.8 % (18.0-39.1); MEAN CORPUSCULAR HEMOGLOBIN 24.4 pg (28-32); MEAN CORPUSCULAR HGB CONC 30.9 g/dL (31-35); MEAN CORPUSCULAR VOLUME 78.9 fL (81-99); MONOCYTES # (AUTO) 0.7 (0.2-0.8); MONOCYTES % 7.2 % (4.4-11.3); NEUTROPHILS # (AUTO) 6.8 (2.1-6.9); NEUTROPHILS % 69.2 % (38.7-80.0); PLATELET COUNT 244 x10e3/uL (140-360); RED BLOOD COUNT 4.55 x10e6/uL (3.6-5.1); RED CELL DISTRIBUTION WIDTH 15.2 % (11.7-14.4)
[2019-09-17 07:00] LABS: CHOL/HDL RATIO 2.8 (3.0-3.6)
--- NOTE | 2019-09-17 07:09 | NUR ---
REPORT GIVEN TO AM NURSE.
[2019-09-17 07:19] LABS: THYROID STIMULATING HORMONE 0.726 uIU/mL (0.350-4.940)
[2019-09-17] MEDS: GABAPENTIN 300 MG CAP PO SCH ×3 (08:22→21:16)
[2019-09-17] MEDS: CLOPIDOGREL BISULFATE 75 MG TAB PO SCH (08:22)
[2019-09-17] MEDS: FAMOTIDINE 20 MG TAB PO SCH ×2 (08:22→15:51)
[2019-09-17] MEDS: ASPIRIN 81 MG CHEW TAB PO SCH (08:22)
[2019-09-17] MEDS: ATENOLOL 50 MG TAB PO SCH (08:23)
[2019-09-17] MEDS ORDERED: FAMOTIDINE 20 MG/2 ML VIAL IV SCH (09:00)
--- NOTE | 2019-09-17 13:55 | NUR ---
Visit made by the Spiritual Care Department Pastoral Visitor, Rukhsana Pastor. PV provided pastoral presence, prayer, hospitality, and supportive listening. Pastoral Visitor informed pt/family of the scope of [employer] and availability. GABBY STOUT Supervisor [employer] Spiritual Care Department O: [phone] Pager: [phone] ([phone] number calling from)
[2019-09-17] MEDS: SODIUM CHLORIDE 0.9% 1000ML 1,000 ML IV SCH (15:51)
[2019-09-17] MEDS ORDERED: DEXTROSE 50% SYRINGE 50 ML IV PRN (17:00)
[2019-09-17] MEDS: INSULIN REGULAR, HUMAN 100 UNIT/1 ML 3ML VIAL SQ SCH (17:16)
--- NOTE | 2019-09-17 17:18 | NUR ---
patient transferred to med surg. all personal belongings gathered by patient. vitals stable with no distress at time of transfer.
--- NOTE | 2019-09-17 17:22 | NUR ---
received pt to floor [id number] pt is in no s.s of distress will continue to monitor pt closely call light is within easy reach instructed to call for assistance
--- NOTE | 2019-09-17 19:00 | NUR ---
Bed side shift report taken from morning Angela in the bed.stable condition.
[2019-09-17] MEDS ORDERED: ATORVASTATIN 40 MG TAB PO SCH (21:00)
[2019-09-17] MEDS ORDERED: ATORVASTATIN 20 MG TAB PO SCH (21:00)
[2019-09-17] MEDS ORDERED: INSULIN GLARGINE 100 UNITS/ML VIAL SQ SCH (21:00)
[2019-09-17] MEDS ORDERED: INSULIN DETEMIR 55 UNIT SQ SCH (21:00)
--- NOTE | 2019-09-17 22:20 | NUR ---
Refused to administer Lantus 55 u Hs.pt stated that" already administered bed time dose insulin".I explained to the pt that administered earlier not Lantus but humulin R .but still she refused.bed locked and in lowest position.phone and call light within reach.instructed to call for assistance as needed.
[2019-09-17 22:33] LABS: BILIRUBIN,URINE NEGATIVE (NEGATIVE); CLARITY,URINE CLEAR (CLEAR); COLOR,URINE YELLOW (YELLOW); KETONES,URINE NEGATIVE (NEGATIVE); LEUKOCYTE ESTERASE ,URINE NEGATIVE (NEGATIVE); NITRITE,URINE NEGATIVE (NEGATIVE); PROTEIN,URINE DIPSTICK NEGATIVE (NEGATIVE); URINE UROBILINOGEN 0.2 mg/dL (0.2 - 1)
[2019-09-17 23:06] LABS: BACTERIA,URINE RARE /HPF; EPITHELIAL CELLS,URINE RARE /LPF; RBC,URINE 0-5 /HPF (0-5)
[2019-09-17] MEDS ORDERED: CEFTRIAXONE SOD 1 GM/NS 50 ML 50 ML IV SCH (23:15)
--- NOTE | 2019-09-17 23:20 | NUR ---
Urine sent to the lab .received new orders from .
[2019-09-18] VITALS: BP 118/68
[2019-09-18] MEDS ORDERED: CEFTRIAXONE SOD 1 GM/NS 50 ML 50 ML IV SCH
[2019-09-18 04:00] VITALS: BP 128/60
[2019-09-18] MEDS ORDERED: KEFLEX500 MG PO (05:44)
[2019-09-18] MEDS ORDERED: MECLIZINE HCL12.5 MG PO (05:44)
--- NOTE | 2019-09-18 05:46 | NUR ---
D/C summary Principal Dx: BPPV UTI Secondary Dx: DM2 HLD Obesity BMI 32.6 PLAN meclizine IVF Home meds IV ceftriaxone hba1c/lipids SCD Hba1c./LDL 9.8/83 d/c home f/u pcp 3-4 days stable d/C>35mins Eugenio Cardoso MD, PHD.
--- NOTE | 2019-09-18 07:00 | NUR ---
Bed side shift report given to the oncoming Rn.stable condition.
[2019-09-18 07:54] VITALS: BP 144/73
[2019-09-18] MEDS: GABAPENTIN 300 MG CAP PO SCH (08:12)
[2019-09-18] MEDS: ASPIRIN 81 MG CHEW TAB PO SCH (08:12)
[2019-09-18] MEDS: FAMOTIDINE 20 MG TAB PO SCH (08:12)
[2019-09-18] MEDS: CLOPIDOGREL BISULFATE 75 MG TAB PO SCH (08:12)
[2019-09-18] MEDS: INSULIN REGULAR, HUMAN 100 UNIT/1 ML 3ML VIAL SQ SCH (08:12)
[2019-09-18] MEDS: ATENOLOL 50 MG TAB PO SCH (08:13)
[2019-09-18 08:17] VITALS: BP 144/73
--- NOTE | 2019-09-18 08:30 | NUR ---
Right AC IV discontinued. No signs of infiltration noted. 2x2 gauze and tape placed. Taken via wheelchair to personal car by PCT. Accompanied by son. [id number] to time, person, place, situation. Respirations even and unlabored. Discharge instructions, rx, and all personal belongings taken with patient.
== END 2019-09-18 08:30 | disposition home or self-care (01) ==
LOC: IMCU 21:17 → MED/SURG 09-17 17:07
PROVIDERS: ADMIT Internal Medicine; ATTEND Internal Medicine
DX: H81.10 Benign paroxysmal vertigo, unspecified ear (principal); N39.0 Urinary tract infection, site not specified; E11.9 Type 2 diabetes mellitus without complications; E66.9 Obesity, unspecified; Z68.32 Body mass index [BMI] 32.0-32.9, adult; E78.5 Hyperlipidemia, unspecified; Z86.73 Personal history of transient ischemic attack (TIA), and cerebral infarction without residual deficits
CPT/HCPCS: 36415; 80048; 80061; 81001; 82948 ×3; 83036; 83735; 84443; 84484; 85025; G0378 ×3; J0696; J1815; J2550; J7030 ×2; J8597

== ENCOUNTER → 2021-04-10 | Day surgery (SDC) | payer BC, MEDICARE ==
[2021-04-07 10:35] LABS: BASOPHILS % 0.6 % (0.0-1.0); EOSINOPHILS # (AUTO) 0.2 (0.0-0.4); EOSINOPHILS % 3.3 % (0.0-6.0); LYMPHOCYTES # (AUTO) 2.1 (1.0-3.2); LYMPHOCYTES % 29.2 % (18.0-39.1); MEAN CORPUSCULAR HEMOGLOBIN 25.3 pg (28-32); MEAN CORPUSCULAR VOLUME 81.9 fL (81-99); MONOCYTES # (AUTO) 0.4 (0.2-0.8); NEUTROPHILS # (AUTO) 4.3 (2.1-6.9); NEUTROPHILS % 60.8 % (38.7-80.0); PLATELET COUNT 253 x10e3/uL (140-360); RED BLOOD COUNT 5.13 x10e6/uL (3.6-5.1); RED CELL DISTRIBUTION WIDTH 14.4 % (11.7-14.4)
[~2021-04-10] MED LIST changes: +ATENOLOL50 MG PO; +GABAPENTIN300 MG PO; +GLIPIZIDE5 MG PO; +GLUCAGON FOR INJ 1 MG VIAL ONE; +HYOSCYAMINE SULFATE 0.5 MG/ML INJ ONE; +JARDIANCE25 MG; +KEFLEX500 MG PO; +LIDOCAINE HCL 2% LOCAL INJ 5 ML SDV VIAL INJ ONE; +LISINOPRIL10 MG PO; +MECLIZINE HCL12.5 MG PO; +MIDAZOLAM HCL 2 MG/2 ML VIAL ONE; +PROPOFOL IV EMULSION 10 MG/ML 20 ML VIAL ONE; +TRESIBA FL100 UNIT/1 SUBD; +VESICARE5 MG PO
[2021-04-10 10:38] VITALS: BP 105/65
== END | disposition home or self-care (01) ==
LOC: OR 06:26
PROVIDERS: ATTEND Internal Medicine Gastroenterology
DX: D12.2 Benign neoplasm of ascending colon (principal); D12.0 Benign neoplasm of cecum; D12.3 Benign neoplasm of transverse colon; E66.9 Obesity, unspecified; K21.9 Gastro-esophageal reflux disease without esophagitis; K62.89 Other specified diseases of anus and rectum; K64.8 Other hemorrhoids; K59.09 Other constipation; I10 Essential (primary) hypertension; Z68.37 Body mass index [BMI] 37.0-37.9, adult; E11.9 Type 2 diabetes mellitus without complications; E78.00 Pure hypercholesterolemia, unspecified; Z86.73 Personal history of transient ischemic attack (TIA), and cerebral infarction without residual deficits; Z86.010 Personal history of colon polyps; Z01.810 Encounter for preprocedural cardiovascular examination; Z01.812 Encounter for preprocedural laboratory examination; Z20.822 Contact with and (suspected) exposure to COVID-19
CPT/HCPCS: 36415 ×2; 45380; 82948; 85025; 93005; J1610; J1980; J2001; J2250; J2704; U0002; 45378; 45384; 45385

== ENCOUNTER 2021-09-01 08:39 | Emergency (ER) | payer BC ==
[~2021-09-01] VITALS: Ht 160 cm; Wt 104.3 kg
[~2021-09-01 08:39] MED LIST changes: -GLUCAGON FOR INJ 1 MG VIAL ONE; -HYOSCYAMINE SULFATE 0.5 MG/ML INJ ONE; -LIDOCAINE HCL 2% LOCAL INJ 5 ML SDV VIAL INJ ONE; -MIDAZOLAM HCL 2 MG/2 ML VIAL ONE; -PROPOFOL IV EMULSION 10 MG/ML 20 ML VIAL ONE
[2021-09-01 08:55] LABS: BASOPHILS # (AUTO) 0.1 (0.0-0.1); BASOPHILS % 0.7 % (0.0-1.0); EOSINOPHILS # (AUTO) 0.3 (0.0-0.4); EOSINOPHILS % 3.8 % (0.0-6.0); HEMATOCRIT 39.8 % (34.2-44.1); HEMOGLOBIN 12.2 g/dL (12.0-16.0); LYMPHOCYTES # (AUTO) 3.1 (1.0-3.2); LYMPHOCYTES % 37.3 % (18.0-39.1); MEAN CORPUSCULAR HEMOGLOBIN 25.6 pg (28-32); MEAN CORPUSCULAR HGB CONC 30.7 g/dL (31-35); MEAN CORPUSCULAR VOLUME 83.6 fL (81-99); MONOCYTES # (AUTO) 0.7 (0.2-0.8); MONOCYTES % 7.9 % (4.4-11.3); NEUTROPHILS # (AUTO) 4.2 (2.1-6.9); NEUTROPHILS % 49.9 % (38.7-80.0); PLATELET COUNT 288 x10e3/uL (140-360); RED BLOOD COUNT 4.76 x10e6/uL (3.6-5.1); RED CELL DISTRIBUTION WIDTH 14.1 % (11.7-14.4)
[2021-09-01 09:11] LABS: INR 0.81; PROTHROMBIN TIME 11.9 seconds (11.9-14.5)
[2021-09-01 09:12] LABS: PARTIAL THROMBOPLASTIN TIME 25.8 seconds (23.8-35.5)
[2021-09-01 09:23] LABS: ALBUMIN 3.7 g/dL (3.5-5.0); ALBUMIN/GLOBULIN RATIO 1.1 (0.8-2.0); ANION GAP 15.2 mmol/L (8-16); CALCIUM 8.7 mg/dL (8.4-10.2); CREATININE, SERUM 0.86 mg/dL (0.57-1.11); POTASSIUM 4.2 mmol/L (3.5-5.1)
[2021-09-01 10:20] VITALS: BP 168/85
== END 2021-09-01 10:24 | disposition home or self-care (01) ==
LOC: ER 09:00
DX: R20.2 Paresthesia of skin (principal); E11.65 Type 2 diabetes mellitus with hyperglycemia; I10 Essential (primary) hypertension; E78.5 Hyperlipidemia, unspecified; I69.351 Hemiplegia and hemiparesis following cerebral infarction affecting right dominant side; Z98.84 Bariatric surgery status; Z20.822 Contact with and (suspected) exposure to COVID-19
CPT/HCPCS: 36415; 70450; 71045; 80053; 84484; 85025; 85610; 85730; 93005; 99284; U0002

== ENCOUNTER → 2025-06-24 | Day surgery (SDC) | payer MEDICARE ==
[2025-06-19 13:07] LABS: BASOPHILS % 0.9 % (0.0-1.0); EOSINOPHILS % 4.6 % (0.0-6.0); LYMPHOCYTES % 25.4 % (18.0-39.1); MONOCYTES % 7.6 % (4.4-11.3); NEUTROPHILS % 61.4 % (38.7-80.0); RED CELL DISTRIBUTION WIDTH 15.1 % (11.7-14.4)
[~2025-06-24] MED LIST changes: +CLOPIDOGREL75 MG PO; +FENTANYL CITRATE/PF 100MCG/2 ML INJ ONE; +FOLIC ACID0.4 MG PO; +GLUCAGON FOR INJ 1 MG VIAL ONE; +LACTATED RINGER'S 1,000 ML ONE; +METOPROLOL; +OZEMPIC1 MG/0.71; +PHENYLEPHRINE HCL 1% 10 MG/ML VIAL ONE; +PROPOFOL IV EMULSION 10 MG/ML 20 ML VIAL ONE; +VITAMIN D
[2025-06-24 13:46] VITALS: TEMP 97.9
[2025-06-24 14:15] VITALS: BP 134/80; PULSE 80; RESP 13; O2SAT 100
== END | disposition home or self-care (01) ==
LOC: OR 10:55
PROVIDERS: ATTEND Internal Medicine Gastroenterology
DX: Z12.11 Encounter for screening for malignant neoplasm of colon (principal); D12.8 Benign neoplasm of rectum; I25.10 Atherosclerotic heart disease of native coronary artery without angina pectoris; I10 Essential (primary) hypertension; E11.9 Type 2 diabetes mellitus without complications; E66.811 Obesity, class 1; G47.33 Obstructive sleep apnea (adult) (pediatric); K21.9 Gastro-esophageal reflux disease without esophagitis; I69.351 Hemiplegia and hemiparesis following cerebral infarction affecting right dominant side; Z68.31 Body mass index [BMI] 31.0-31.9, adult; Z79.82 Long term (current) use of aspirin; Z79.02 Long term (current) use of antithrombotics/antiplatelets; Z79.4 Long term (current) use of insulin; Z79.85 Long-term (current) use of injectable non-insulin antidiabetic drugs; Z79.899 Other long term (current) drug therapy; Z95.1 Presence of aortocoronary bypass graft; Z01.810 Encounter for preprocedural cardiovascular examination; Z01.812 Encounter for preprocedural laboratory examination
CPT/HCPCS: 36415 ×2; 45385; 82948; 85025; 88305; 93005; J1610; J2371; J2704; J3010; J7121